=== PATIENT | female | born 1935 | race Caucasian/White ===

== ENCOUNTER 2017-08-23 13:00 | Outpatient (RCR) | payer MEDICARE, BC ==
[~2017-08-23 13:00] MED LIST: ACETAMINOPHEN325 M1 PO; ACIDOPHILUS LA1 EACH PO; AMLODIPINE BESYL5 MG PO; ASA81 MG PO; ASPIR 8181 MG; ATORVASTATIN CA10 MG PO; B-121000 MCG PO; B-123000 MCG SL; BENZONATATE100 MG PO; BISACODYL5 MG PO; BISCOLAX10 MG RC; BOOST PLUS237 ML PO; CIPRO500 MG PO; CLONIDINE HCL0.1 MG PO; CLOPIDOGREL75 MG PO; DULCOLAX SUPP10 MG RC; FERROUS SULFAT325 MG PO; FLAGYL250 MG PO; FLUCONAZOLE100 MG PO; HEMOCYTE PLUS1 EACH; HEMOCYTE324 MG; ISOSORBIDE MONO20 MG PO; ISOSORBIDE MONO30 MG PO; LEVAQUIN250 MG PO; LEVOTHYROXINE50 MCG PO; LIBRAX CAPSULE1 EACH; LIBRAX CAPSULE1 EACH PO; LOPRESSOR25 MG PO; LORATADINE10 MG PO; LOSARTAN POTAS100 MG PO; LOSARTAN POTASS25 MG PO; METOPROLOL TART50 MG PO; MILK OF MA2400 MG/10 PO; MIRALAX17 GM PO; NITROGLYCERIN0.4 MG SL; NITROQUICK0.4 M1 SL; NORVASC5 MG PO; PANTOPRAZOLE SO40 MG PO; PLAVIX75 MG PO; PROBIOTIC & AC1 EACH PO; ROPINIROLE HC0.25 MG PO; ROPINIROLE HCL1 MG PO; SIMVASTATIN20 MG PO; SUCRALFATE1 GM; SUCRALFATE1 GM PO; SYNTHROID50 MCG PO; TRAMADOL HCL50 M1 PO; ULTRAM 50MG50 MG PO; ULTRAM50 MG PO; VITAMIN B-121000 MCG PO; XYZAL5 MG PO; Z REQUIP PO; Z.0.CATAPRES0.1 MG PO; Z.0.COLACE50 MG PO; Z.0.EVISTA60 MG PO; Z.0.HEMOCYTE PLUS1 E PO; Z.0.HYDROCHLOROTH12. PO; Z.0.ISOSORBIDE DINI3 PO; Z.0.LIBRAX CAPSULE1 PO; Z.0.METOPROLOL SUCC5 PO; Z.0.PLAVIX75 MG PO; Z.0.PROTONIX40 MG PO; Z.0.SIMVASTATIN20 MG PO; Z.0.SYNTHROID50 MCG PO; Z.1.CENTRUM SILVER1 PO; Z.2.CALCIUM 600 +1 E PO; ZOFRAN ODT4 MG; ZOFRAN ODT4 MG PO; ZOFRAN8 MG PO; d-3 PO
== END 2017-08-25 ==
LOC: ST 13:00
PROVIDERS: ATTEND Internal Medicine Gastroenterology
DX: K22.2 Esophageal obstruction (principal); R13.13 Dysphagia, pharyngeal phase; R09.89 Other specified symptoms and signs involving the circulatory and respiratory systems
CPT/HCPCS: 92526 ×4; 92610; G8996; G8997

== ENCOUNTER 2017-08-26 15:16 | Outpatient (RCR) | payer MEDICARE, BC ==
[2017-09-07] MEDS ORDERED: NORVASC5 MG PO (17:16)
[2017-09-07] MEDS ORDERED: MULTIVITAMINS1 EAC7 PO (17:17)
[2017-09-07] MEDS ORDERED: ROPINIROLE HCL1 MG PO (17:17)
== END 2017-09-24 ==
LOC: ST 15:16
PROVIDERS: ATTEND Internal Medicine Gastroenterology
DX: R13.13 Dysphagia, pharyngeal phase (principal); K22.2 Esophageal obstruction

== ENCOUNTER → 2017-09-08 | Day surgery (SDC) | payer MEDICARE, BC ==
[~2017-09-08] MED LIST changes: +MULTIVITAMINS1 EAC7 PO; +PROPOFOL IV EMULSION 10 MG/ML 20 ML VIAL ONE
--- NOTE | 2017-09-08 14:16 | Operative Report ---
DATE OF PROCEDURE: September 08, 2017 PROCEDURE PERFORMED: Esophagogastroduodenoscopy. PREOPERATIVE DIAGNOSIS: Dysphagia. POSTOPERATIVE DIAGNOSIS 1. Jett's esophagus. 2. Intact fundoplication. 3. Esophageal spasm. 4. Gastritis. MEDICATION: Preoperative medication consisted of IV sedation administered in the MAC anesthesia. PROCEDURE: Using the [employer] video gastroscope, it was inserted into the patient's oropharynx and advanced into the hypopharynx and down into the esophagus. The oropharynx and the hypopharynx were normal. The esophageal body was normal except there were tertiary contractions noted. No evidence of any stricture was seen. There was evidence of Jett's esophagus at 36 cm. Below this was an intact fundoplication that was patent. The scope was able to go through it easily. No retained food debris was noted. The stomach was entered and insufflated with air. The mucosal pattern in the cardia, fundus, body and the antrum was viewed. There was evidence of a gastritis down in the antrum, but the rest of the stomach was normal. A biopsy was obtained, looking for the H. pylori infection. The endoscope was then inserted through the normal-appearing pylorus into the duodenal bulb and postbulbar duodenum and found to be within normal limits. The endoscope was withdrawn back up into the stomach, a retroflexed view of the intact fundoplication. The endoscope was then placed back into the body of the stomach and then slowly withdrawn back up into the esophagus where biopsies were obtained in the area of the Jett's esophagus. The endoscope was then further withdrawn back up into the esophagus. Again no stricture was seen. Tertiary contractions were noted. The endoscope was then pulled through back into the hypopharynx which again appeared normal, oropharynx, and out of the patient's mouth, and the procedure was ended. Job#: [id number] MELISSA
== END | disposition home or self-care (01) ==
LOC: OR 10:00
PROVIDERS: ATTEND Internal Medicine Gastroenterology
DX: K21.0 Gastro-esophageal reflux disease with esophagitis (principal); K22.70 Barrett's esophagus without dysplasia; K22.4 Dyskinesia of esophagus; K29.70 Gastritis, unspecified, without bleeding; R13.10 Dysphagia, unspecified; Z88.5 Allergy status to narcotic agent; Z88.8 Allergy status to other drugs, medicaments and biological substances; Z88.1 Allergy status to other antibiotic agents; Z91.012 Allergy to eggs; D50.9 Iron deficiency anemia, unspecified; R14.0 Abdominal distension (gaseous); K22.2 Esophageal obstruction; K58.0 Irritable bowel syndrome with diarrhea; I12.9 Hypertensive chronic kidney disease with stage 1 through stage 4 chronic kidney disease, or unspecified chronic kidney disease; N18.9 Chronic kidney disease, unspecified
CPT/HCPCS: 43239; 88305; 88312

== ENCOUNTER 2017-10-15 22:41 | Inpatient (IN) | payer MEDICARE, BC ==
[~2017-10-15] VITALS: Ht 162.6 cm; Wt 62.6 kg
[~2017-10-15 22:41] MED LIST changes: -PROPOFOL IV EMULSION 10 MG/ML 20 ML VIAL ONE
[2017-10-15] MEDS ORDERED: SODIUM CHLORIDE 0.9% 1000ML 1,000 ML IV STA (23:46)
[2017-10-16] MEDS ORDERED: ASPIRIN 81 MG CHEW TAB PO ONE
[2017-10-16] MEDS ORDERED: NITROGLYCERIN 2% OINT 1 GM PKT TOP ONE
[2017-10-16] MEDS: LOSARTAN POTASSIUM 100 MG TAB PO SCH (00:10)
--- NOTE | 2017-10-16 00:58 | Diagnostic Imaging Report ---
EXAMINATION: CHEST SINGLE (PORTABLE) INDICATION: Chest pain. COMPARISON: 06/08/2016 FINDINGS: TUBES and LINES: None. LUNGS: Lungs are well inflated. Lungs are clear. There is no evidence of pneumonia or pulmonary edema. PLEURA: No pleural effusion or pneumothorax. HEART AND MEDIASTINUM: Cardiac size is mildly enlarged. There are atherosclerotic calcifications within the aorta. Midline sternotomy wires are intact. BONES AND SOFT TISSUES: No acute osseous lesion. Soft tissues are unremarkable. UPPER ABDOMEN: No free air under the diaphragm. IMPRESSION: No acute thoracic abnormality. Signed by: Dr. Hudson Giles M.D. on 10/16/2017 12:54 AM
[2017-10-16 01:13] LABS: BASOPHILS # (AUTO) 0.1 (0.0-0.1); BASOPHILS % 0.2 % (0.0-1.0); EOSINOPHILS % 0.1 % (0.0-6.0); HEMATOCRIT 36.1 % (34.2-44.1); HEMOGLOBIN 11.7 g/dL (12.0-16.0); LYMPHOCYTES % 8.7 % (18.0-39.1); MEAN CORPUSCULAR HEMOGLOBIN 29.5 pg (28-32); MEAN CORPUSCULAR HGB CONC 32.4 g/dL (31-35); MEAN CORPUSCULAR VOLUME 91.2 fL (81-99); MONOCYTES # (AUTO) 1.9 (0.2-0.8); MONOCYTES % 8.3 % (4.4-11.3); NEUTROPHILS # (AUTO) 18.8 (2.1-6.9); NEUTROPHILS % 82.2 % (38.7-80.0); PLATELET COUNT 214 x10e3/uL (140-360); RED BLOOD COUNT 3.96 x10e6/uL (3.6-5.1); RED CELL DISTRIBUTION WIDTH 13.7 % (11.7-14.4)
[2017-10-16 01:29] LABS: INR 1.03; PROTHROMBIN TIME 12.7 seconds (11.9-14.5)
[2017-10-16 01:30] LABS: PARTIAL THROMBOPLASTIN TIME 22.9 seconds (23.8-35.5)
[2017-10-16 01:37] LABS: ALBUMIN 3.5 g/dL (3.5-5.0); ALBUMIN/GLOBULIN RATIO 1.1 (0.8-2.0); CALCIUM 9.3 mg/dL (8.4-10.2); CREATININE, SERUM 0.93 mg/dL (0.57-1.11)
[2017-10-16 01:43] LABS: CREATINE KINASE MB 1.4 ng/mL (0-5.0)
[2017-10-16 01:57] LABS: LYMPHOCYTES % (MANUAL) 17 % (19-48); MONOCYTES % (MANUAL) 2 % (3.4-9.0); NEUTROPHILS % (MANUAL) 80 % (40-74)
[2017-10-16 02:00] LABS: PLATELET ESTIMATE ADEQUATE; PLATELET MORPHOLOGY COMMENT NORMAL; POIKILOCYTOSIS SLIGHT; RBC MORPHOLOGY COMMENT NORMAL
[2017-10-16 02:18] LABS: CLARITY,URINE HAZY (CLEAR); COLOR,URINE YELLOW (YELLOW); LEUKOCYTE ESTERASE ,URINE 1+ (NEGATIVE); NITRITE,URINE NEGATIVE (NEGATIVE); PROTEIN,URINE DIPSTICK NEGATIVE (NEGATIVE)
[2017-10-16 02:19] LABS: BILIRUBIN,URINE NEGATIVE (NEGATIVE); KETONES,URINE NEGATIVE (NEGATIVE); URINE UROBILINOGEN 0.2 mg/dL (0.2 - 1)
[2017-10-16 02:28] LABS: BACTERIA,URINE MANY /HPF; EPITHELIAL CELLS,URINE RARE /LPF; RBC,URINE 0-5 /HPF (0-5); TRANSITIONAL EPI CELLS,URINE FEW; WBC,URINE (MAN) 21-50 /HPF (0-5)
[2017-10-16] MEDS ORDERED: PIPER-TAZ 3.375 GM 50 ML IV STA (02:34)
[2017-10-16] MEDS ORDERED: FAMOTIDINE 20 MG TAB PO SCH (04:15)
[2017-10-16] MEDS ORDERED: MORPHINE SULFATE 2 MG/ML SYR IV PRN (04:15)
[2017-10-16] MEDS ORDERED: SODIUM CHLORIDE 0.9% 1000ML 1,000 ML IV SCH (04:15)
[2017-10-16] MEDS ORDERED: ONDANSETRON HCL INJ 2 MG/ML VIAL IV PRN (04:15)
[2017-10-16] MEDS ORDERED: NITROGLYCERIN 0.4 MG SUBL SL PRN (04:15)
[2017-10-16] MEDS ORDERED: TRAMADOL HCL 50 MG TAB PO ONE (05:00)
[2017-10-16] MEDS ORDERED: ACETAMINOPHEN 325 MG TAB ONE (05:06)
[2017-10-16] MEDS: ACETAMINOPHEN 325 MG TAB PO PRN (05:10)
[2017-10-16 05:20] VITALS: BP 130/61
[2017-10-16 05:45] VITALS: BP 130/61
[2017-10-16] MEDS: NITROGLYCERIN 2% OINT 1 GM PKT TOP SCH ×3 (06:00→17:29)
[2017-10-16 07:53] LABS: CREATINE KINASE MB 1.1 ng/mL (0-5.0)
[2017-10-16 08:00] VITALS: BP 112/57
[2017-10-16] MEDS: FAMOTIDINE 20 MG TAB PO SCH ×2 (08:15→22:39)
[2017-10-16] MEDS ORDERED: LEVOTHYROXINE SODIUM 100 MCG TAB PO ONE (08:15)
[2017-10-16] MEDS: ASPIRIN 81 MG ENTERIC COATED PO SCH (08:15)
[2017-10-16] MEDS: PIPER-TAZ 3.375 GM 50 ML IV SCH ×3 (09:00→22:38)
[2017-10-16 12:00] VITALS: BP 116/60
[2017-10-16] MEDS ORDERED: SODIUM BICARBONATE 650 MG TAB PO ONE (13:00)
[2017-10-16] MEDS ORDERED: SODIUM CHLORIDE 0.9% 1000ML 1,000 ML ONE (14:19)
--- NOTE | 2017-10-16 15:22 | Diagnostic Imaging Report ---
EXAM: Gallbladder Ultrasound INDICATION: epigastric pains COMPARISON: None. TECHNIQUE: Transverse and longitudinal images of the gallbladder were obtained. FINDINGS: Liver: 11.6 cm in length, normal. Diffuse coarsened echotexture. No focal lesions within limitations. Gallbladder: Not visualized. Bile Ducts: Intrahepatic Ducts: No dilatation Extrahepatic Ducts: Common bile duct measures 0.5 cm, no dilatation Free Fluid: No ascites or pleural effusion Right kidney: 8.2 cm in length, atrophic. No hydronephrosis or shadowing calculi. Cortical scarring. Main portal vein: 0.7 cm in diameter. Hepatopedal flow. IVC, aorta and pancreas not well visualized due to shadowing from overlying bowel gas. IMPRESSION: Status post cholecystectomy. No significant biliary dilatation. Pancreas is suboptimally visualized. Signed by: Dr. Noreen Mcdowell M.D. on 10/16/2017 3:19 PM
[2017-10-16 15:52] LABS: CREATINE KINASE MB 1.6 ng/mL (0-5.0)
[2017-10-16 16:00] VITALS: BP 119/66
--- NOTE | 2017-10-16 16:51 | History and Physical ---
HISTORY OF PRESENT ILLNESS: This is an 82-year-old white female with past medical history positive for small-bowel obstruction in the past with partial small-bowel resection, history of coronary artery disease, status post CABG, history of chronic diastolic CHF, history of anemia of chronic disease, history of hypertensive heart disease, history of anemia secondary to iron deficiency and vitamin B12 deficiency, history of former hypertension, mitral regurgitation, peripheral vascular disease, mild carotid artery disease, orthostatic syncope in the past, hypothyroidism, hyperlipidemia, hiatal hernia, status post Vamshi fundoplication procedure, who came to the hospital complaining of gastric pain and some atypical chest pain. REVIEW OF SYSTEMS CARDIOVASCULAR: She had chest pain, which is gone. RESPIRATORY: No shortness of breath and no cough. GASTROINTESTINAL: She had epigastric pain. No nausea. No vomiting. No diarrhea. GENITOURINARY: No frequency or dysuria. ALLERGIES: SHE IS ALLERGIC TO A LONG LIST OF MEDICATIONS INCLUDING INFLUENZA VACCINE, ERYTHROMYCIN, CEPHALEXIN, CODEINE AND HYDROCODONE. SOCIAL HISTORY: She does not smoke. She does not drink. PHYSICAL EXAMINATION VITALS: Blood pressure 116/60. Temperature 96.1. Heart rate 63 per minute. Respiratory rate is 18 per minute. Oxygen saturation 95%. HEART: Regular rhythm. Normal S1, S2 sounds. LUNGS: Clear bilaterally. ABDOMEN: Soft. Minimal epigastric tenderness. She has a midline incision. She has an incision on the chest also. EXTREMITIES: No evidence of cyanosis, edema or trauma. LABS: On the blood work, we have BMP with sodium 139, potassium 4.0, chloride 107, CO2 20, BUN 17, creatinine 0.83, glucose 94. On the CBC, white blood count 22,800, hemoglobin 11.7, hematocrit 36.1, platelet count 214,000. PT 12.7, INR 1.03, PTT 22.9. AST 86, ALT 64, total bilirubin 0.6, alkaline phosphatase 94. FINAL IMPRESSION 1. Atypical chest pain. 2. Abdominal pain. 3. Coronary artery disease, status post coronary artery bypass graft. 4. Hypothyroidism. 5. Urinary tract infection. 6. Leukocytosis. 7. Anemia of chronic disease. 8. Hypertensive heart disease. 9. Status post Vamshi fundoplication. PLAN OF TREATMENT 1. Continue Zosyn 3.375 grams IV piggyback q.6 h. 2. Aspirin 81 mg daily. 3. Nitroglycerin 0.4 mg q.5 minutes p.r.n. for chest pain, no more than 3 tablets a day. 4. Morphine 2 mg IV q.3 h. as needed. 5. Tylenol 975 mg q.6 h. as needed for pain or fever. 6. Continue Zofran 4 mg IV q.4 h. as needed. 7. Pepcid 20 mg twice a day. 8. Continue the rest of the home medications. 9. Dr. Leroy has been consulted from the cardiology point of view. EKG was unremarkable. Cardiac enzymes are negative. 10. We are going to also get a gastroenterology consult with Dr. 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 Dr. Chakraborty is going to be resuming the care tomorrow, October 17, at 7 a.m. Job#: [id number]
[2017-10-16] MEDS: AMLODIPINE BESYLATE 5 MG TAB PO SCH (17:00)
[2017-10-16] MEDS: TRAMADOL HCL 50 MG TAB PO PRN (20:03)
[2017-10-16] MEDS: METOPROLOL TARTRATE 50 MG TAB PO SCH (21:00)
[2017-10-16] MEDS: ROPINIROLE HCL 1 MG TAB PO SCH (22:39)
[2017-10-16] MEDS: LORATADINE 10 MG TAB PO SCH (22:39)
[2017-10-17] VITALS (11 sets, daily range): BP systolic 121–206; BP diastolic 58–89
--- NOTE | 2017-10-17 00:35 | Consultation ---
DATE OF CONSULTATION: October 16, 2017 CLINICAL HISTORY: This is an 82-year-old white woman well known to me from previous evaluations, admitted via the emergency room because of chest pains lasting all day involving the lower anterior chest and in the epigastric region. This patient is known to have coronary artery disease, status post coronary artery bypass surgery. At the time of her last cardiac catheterization, 2011, she had a bifurcating vein bypass that remained patent; however, there was small-vessel disease distally. She was treated medically and continued to have vocational chest pains, but never the pain that she had that caused her to come to the emergency room. A month ago, Dr. Mitchell Ramirez had done endoscopy on her finding Jett's esophagus. She has history of hiatal hernia and previous hiatus hernia surgery times 2. Biopsy was done. On the day of admission, after breakfast, she developed moderate pain rated a 6 on a scale of 10, which persisted all day prompting her to come to the emergency room. Workup thus far showed normal cardiac enzymes and benign EKG. She has leukocytosis white count 22,000, metabolic acidosis bicarbonate 20. Anemia hemoglobin 11.7. Urinary tract infection. Her creatinine is normal 0.9. In the past, she has mild azotemia. Liver functions are slightly elevated. Cardiology consultation requested. PAST MEDICAL HISTORY: Remarkable for the above-mentioned coronary artery disease. She also has moderate mitral regurgitation, pulmonary hypertension 58 mmHg, has history of diverticulitis, constipation, hypertension. MEDICATIONS AT HOME: Included 1. Metoprolol succinate 50 mg p.o. daily. 2. Plavix 75 mg daily. 3. Tramadol. 4. Ropinirole. 5. Nitroglycerin sublingual p.r.n. 6. Protonix 40 mg daily. 7. Losartan 100 mg p.o. daily. 8. Xyzal 5 mg p.o. daily. 9. Norvasc 2.5 mg daily. 10. Zofran. 11. Tessalon. 12. Multivitamins. REVIEW OF SYSTEMS: Noncontributory. PHYSICAL EXAMINATION GENERAL: She is alert, coherent, appears to be comfortable. CARDIAC: Jugular veins are not distended. S1, S2 were regular. There is no appreciable murmur. LUNGS: Clear. ABDOMEN: Soft. There are no significant tenderness. EXTREMITIES: Show no cyanosis, clubbing, edema. IMPRESSIONS 1. Moderate prolonged low anterior epigastric pain, possibly gastrointestinal in origin. Consider also small-vessel coronary artery disease causing angina, although she was at rest and was eating when this happened. She does have somewhat elevated liver functions. 2. Coronary artery disease, status post coronary artery bypass surgery with small-vessel disease at the time of last cardiac catheterization, 2011. 3. Moderate mitral regurgitation. 4. Pulmonary hypertension 58 mmHg. 5. Peripheral vascular disease. 6. Hypertension. 7. Diverticulitis. 8. Jett's esophagus, hiatal hernia surgery and recent esophagogastroduodenoscopy and biopsy. 9. History of constipation. 10. Urinary tract infection. 11. Metabolic acidosis. 12. Mild anemia. This patient is unable to do a stress test because she uses a walker and does not want to have a chemical stress test. At her age, she is reluctant to have cardiac catheterization as well. We will, therefore, continue treat her symptomatically with nitro patch provided that her blood pressure will withstand it. We can possibly cut back on her losartan or even discontinue it. Her ejection fraction in the past has been in the range of 70%. Beta-blockers may be helpful instead of Norvasc consider increasing metoprolol if her rate will tolerate. Job#: [id number] CQ cc:MEDINA THOMPSON MD
[2017-10-17] MEDS: PIPER-TAZ 3.375 GM 50 ML IV SCH ×4 (04:02→20:54)
[2017-10-17] MEDS: ACETAMINOPHEN 325 MG TAB PO PRN (04:45)
[2017-10-17] MEDS: LEVOTHYROXINE SODIUM 50 MCG TAB PO SCH (04:45)
[2017-10-17 05:51] LABS: BASOPHILS % 0.2 % (0.0-1.0); EOSINOPHILS % 0.2 % (0.0-6.0); HEMATOCRIT 35.2 % (34.2-44.1); HEMOGLOBIN 11.3 g/dL (12.0-16.0); MEAN CORPUSCULAR HEMOGLOBIN 29.7 pg (28-32); MEAN CORPUSCULAR HGB CONC 32.1 g/dL (31-35); MEAN CORPUSCULAR VOLUME 92.6 fL (81-99); MONOCYTES # (AUTO) 0.9 (0.2-0.8); MONOCYTES % 6.8 % (4.4-11.3); NEUTROPHILS % 84.2 % (38.7-80.0); PLATELET COUNT 199 x10e3/uL (140-360); RED CELL DISTRIBUTION WIDTH 13.8 % (11.7-14.4)
[2017-10-17] MEDS: NITROGLYCERIN 2% OINT 1 GM PKT TOP SCH ×2 (06:06)
[2017-10-17] MEDS: PANTOPRAZOLE SOD 40 MG TABEC PO SCH (06:07)
[2017-10-17 06:13] LABS: ANION GAP 14.4 mmol/L (8-16); CALCIUM 8.7 mg/dL (8.4-10.2); CHOL/HDL RATIO 2.2 (3.0-3.6); CREATININE, SERUM 0.99 mg/dL (0.57-1.11); POTASSIUM 4.4 mmol/L (3.5-5.1)
[2017-10-17] MEDS: ASPIRIN 81 MG ENTERIC COATED PO SCH (10:00)
[2017-10-17] MEDS: CLOPIDOGREL BISULFATE 75 MG TAB PO SCH (10:00)
[2017-10-17] MEDS: METOPROLOL TARTRATE 50 MG TAB PO SCH ×2 (10:00→20:55)
[2017-10-17] MEDS: CYANOCOBALAMIN 1,000 MCG TAB PO SCH (10:00)
[2017-10-17] MEDS ORDERED: FUROSEMIDE INJ 10 MG/ML 4 ML VIAL IV ONE (10:00)
[2017-10-17] MEDS: MULTIVITAMINS/MINERALS TAB PO SCH (10:00)
[2017-10-17] MEDS: FAMOTIDINE 20 MG TAB PO SCH ×2 (10:00→20:55)
[2017-10-17] MEDS: AMLODIPINE BESYLATE 5 MG TAB PO SCH (17:16)
[2017-10-17] MEDS: LOSARTAN POTASSIUM 100 MG TAB PO SCH (20:54)
[2017-10-17] MEDS: LORATADINE 10 MG TAB PO SCH (20:54)
[2017-10-17] MEDS: ROPINIROLE HCL 1 MG TAB PO SCH (20:55)
[2017-10-18] VITALS (10 sets, daily range): BP systolic 104–186; BP diastolic 56–81
[2017-10-18] MEDS: PIPER-TAZ 3.375 GM 50 ML IV SCH ×4 (03:57→20:58)
[2017-10-18 05:22] LABS: BASOPHILS % 0.3 % (0.0-1.0); EOSINOPHILS # (AUTO) 0.1 (0.0-0.4); EOSINOPHILS % 1.2 % (0.0-6.0); HEMATOCRIT 35.1 % (34.2-44.1); HEMOGLOBIN 11.6 g/dL (12.0-16.0); LYMPHOCYTES % 8.8 % (18.0-39.1); MEAN CORPUSCULAR HEMOGLOBIN 29.3 pg (28-32); MEAN CORPUSCULAR VOLUME 88.6 fL (81-99); MONOCYTES # (AUTO) 0.7 (0.2-0.8); MONOCYTES % 6.7 % (4.4-11.3); NEUTROPHILS % 82.7 % (38.7-80.0); PLATELET COUNT 188 x10e3/uL (140-360); RED BLOOD COUNT 3.96 x10e6/uL (3.6-5.1); RED CELL DISTRIBUTION WIDTH 13.4 % (11.7-14.4)
[2017-10-18 05:56] LABS: ALBUMIN 2.8 g/dL (3.5-5.0); ALBUMIN/GLOBULIN RATIO 0.8 (0.8-2.0); ANION GAP 13.8 mmol/L (8-16); CREATININE, SERUM 1.45 mg/dL (0.57-1.11); POTASSIUM 3.8 mmol/L (3.5-5.1)
[2017-10-18] MEDS: LEVOTHYROXINE SODIUM 50 MCG TAB PO SCH (05:59)
[2017-10-18] MEDS: PANTOPRAZOLE SOD 40 MG TABEC PO SCH (07:45)
[2017-10-18] MEDS: CYANOCOBALAMIN 1,000 MCG TAB PO SCH (09:09)
[2017-10-18] MEDS: METOPROLOL TARTRATE 50 MG TAB PO SCH ×2 (09:09→20:58)
[2017-10-18] MEDS: CLOPIDOGREL BISULFATE 75 MG TAB PO SCH (09:09)
[2017-10-18] MEDS: FAMOTIDINE 20 MG TAB PO SCH ×2 (09:09→20:58)
[2017-10-18] MEDS: MULTIVITAMINS/MINERALS TAB PO SCH (09:09)
[2017-10-18] MEDS: ASPIRIN 81 MG ENTERIC COATED PO SCH (09:09)
[2017-10-18 12:42] LABS: AMYLASE 33 U/L (25-125)
[2017-10-18 12:44] LABS: LIPASE < 4 U/L (8-78)
--- NOTE | 2017-10-18 13:53 | Diagnostic Imaging Report ---
PROCEDURE: Frontal and lateral views of the chest. COMPARISON: Chest radiograph 10/16/[address] 06/10/16. INDICATIONS: CHF FINDINGS: Lines/tubes: None. Lungs: The lungs are well inflated. There is no evidence of pneumonia or pulmonary edema. Pleura: There is no pneumothorax. Trace pleural effusion or pleural thickening on the left is unchanged. Heart and mediastinum: The cardiomediastinal silhouette is unchanged. Atherosclerotic aortic calcifications. A lead projecting over the left pericardium is unchanged from prior studies. Bones: No acute bony abnormality. Status post median sternotomy. IMPRESSION: No acute cardiopulmonary disease. Dictated by: MONALISA YANEZ M.D. on 10/18/2017 at 13:58 Electronically approved by: MONALISA YANEZ M.D. on 10/18/2017 at 13:58
[2017-10-18] MEDS: AMLODIPINE BESYLATE 5 MG TAB PO SCH (17:29)
[2017-10-18] MEDS: LOSARTAN POTASSIUM 100 MG TAB PO SCH (20:58)
[2017-10-18] MEDS: LORATADINE 10 MG TAB PO SCH (20:58)
[2017-10-18] MEDS: ROPINIROLE HCL 1 MG TAB PO SCH (20:58)
[2017-10-18] MEDS: TRAMADOL HCL 50 MG TAB PO PRN (21:03)
[2017-10-19] VITALS (8 sets, daily range): BP systolic 122–180; BP diastolic 70–92
[2017-10-19] MEDS: PIPER-TAZ 3.375 GM 50 ML IV SCH ×2 (02:46→07:55)
[2017-10-19 05:17] LABS: BASOPHILS % 0.4 % (0.0-1.0); EOSINOPHILS # (AUTO) 0.1 (0.0-0.4); EOSINOPHILS % 1.2 % (0.0-6.0); HEMATOCRIT 37.3 % (34.2-44.1); HEMOGLOBIN 12.1 g/dL (12.0-16.0); LYMPHOCYTES # (AUTO) 1.4 (1.0-3.2); LYMPHOCYTES % 13.6 % (18.0-39.1); MEAN CORPUSCULAR HEMOGLOBIN 29.4 pg (28-32); MEAN CORPUSCULAR HGB CONC 32.4 g/dL (31-35); MEAN CORPUSCULAR VOLUME 90.5 fL (81-99); MONOCYTES # (AUTO) 1.1 (0.2-0.8); MONOCYTES % 10.8 % (4.4-11.3); NEUTROPHILS # (AUTO) 7.6 (2.1-6.9); NEUTROPHILS % 73.8 % (38.7-80.0); PLATELET COUNT 158 x10e3/uL (140-360); RED BLOOD COUNT 4.12 x10e6/uL (3.6-5.1); RED CELL DISTRIBUTION WIDTH 13.8 % (11.7-14.4)
[2017-10-19 05:38] LABS: ALBUMIN 2.7 g/dL (3.5-5.0); ALBUMIN/GLOBULIN RATIO 0.8 (0.8-2.0); ANION GAP 13.1 mmol/L (8-16); CREATININE, SERUM 1.33 mg/dL (0.57-1.11); POTASSIUM 4.1 mmol/L (3.5-5.1)
[2017-10-19] MEDS: LEVOTHYROXINE SODIUM 50 MCG TAB PO SCH (05:51)
[2017-10-19] MEDS: PANTOPRAZOLE SOD 40 MG TABEC PO SCH (07:55)
[2017-10-19] MEDS: ASPIRIN 81 MG ENTERIC COATED PO SCH (07:55)
[2017-10-19] MEDS: METOPROLOL TARTRATE 50 MG TAB PO SCH ×2 (07:56→21:01)
[2017-10-19] MEDS: MULTIVITAMINS/MINERALS TAB PO SCH (07:56)
[2017-10-19] MEDS: FAMOTIDINE 20 MG TAB PO SCH ×2 (07:56→21:01)
[2017-10-19] MEDS: CLOPIDOGREL BISULFATE 75 MG TAB PO SCH (07:56)
[2017-10-19] MEDS: CYANOCOBALAMIN 1,000 MCG TAB PO SCH (07:56)
[2017-10-19] MEDS: TRAMADOL HCL 50 MG TAB PO PRN (07:57)
[2017-10-19] MEDS ORDERED: ACETAMINOPHEN 325 MG TAB PO ONE (08:30)
[2017-10-19] MEDS ORDERED: FUROSEMIDE INJ 10 MG/ML 4 ML VIAL IV ONE (10:00)
[2017-10-19] MEDS: CEFEPIME HCL 1 GM VIAL IV SCH ×2 (12:31→21:57)
[2017-10-19] MEDS: AMLODIPINE BESYLATE 5 MG TAB PO SCH (18:57)
[2017-10-19] MEDS: LORATADINE 10 MG TAB PO SCH (21:00)
[2017-10-19] MEDS: ROPINIROLE HCL 1 MG TAB PO SCH (21:01)
[2017-10-19] MEDS: LOSARTAN POTASSIUM 100 MG TAB PO SCH (21:01)
[2017-10-20] VITALS (7 sets, daily range): BP systolic 113–151; BP diastolic 67–82
[2017-10-20 05:26] LABS: BASOPHILS % 0.3 % (0.0-1.0); EOSINOPHILS # (AUTO) 0.1 (0.0-0.4); EOSINOPHILS % 0.8 % (0.0-6.0); HEMATOCRIT 36.9 % (34.2-44.1); HEMOGLOBIN 12.3 g/dL (12.0-16.0); LYMPHOCYTES # (AUTO) 1.7 (1.0-3.2); LYMPHOCYTES % 12.4 % (18.0-39.1); MEAN CORPUSCULAR HEMOGLOBIN 29.4 pg (28-32); MEAN CORPUSCULAR HGB CONC 33.3 g/dL (31-35); MEAN CORPUSCULAR VOLUME 88.1 fL (81-99); MONOCYTES # (AUTO) 1.7 (0.2-0.8); MONOCYTES % 12.4 % (4.4-11.3); NEUTROPHILS % 73.8 % (38.7-80.0); PLATELET COUNT 222 x10e3/uL (140-360); RED BLOOD COUNT 4.19 x10e6/uL (3.6-5.1); RED CELL DISTRIBUTION WIDTH 13.3 % (11.7-14.4)
[2017-10-20 05:48] LABS: ALBUMIN 2.9 g/dL (3.5-5.0); ALBUMIN/GLOBULIN RATIO 0.8 (0.8-2.0); ANION GAP 15.2 mmol/L (8-16); CALCIUM 9.1 mg/dL (8.4-10.2); CREATININE, SERUM 1.31 mg/dL (0.57-1.11); POTASSIUM 4.2 mmol/L (3.5-5.1)
[2017-10-20] MEDS: LEVOTHYROXINE SODIUM 100 MCG TAB PO SCH (06:34)
[2017-10-20 06:54] LABS: EOSINOPHILS % (MANUAL) 1 % (0-7); LYMPHOCYTES % (MANUAL) 5 % (19-48); MONOCYTES % (MANUAL) 9 % (3.4-9.0); NEUTROPHILS % (MANUAL) 77 % (40-74)
[2017-10-20 06:55] LABS: ANISOCYTOSIS SLIGHT; PLATELET ESTIMATE ADEQUATE; PLATELET MORPHOLOGY COMMENT NORMAL; RBC MORPHOLOGY COMMENT NORMAL
[2017-10-20] MEDS: FAMOTIDINE 20 MG TAB PO SCH ×2 (08:20→21:05)
[2017-10-20] MEDS: MULTIVITAMINS/MINERALS TAB PO SCH (08:20)
[2017-10-20] MEDS: PANTOPRAZOLE SOD 40 MG TABEC PO SCH (08:20)
[2017-10-20] MEDS: METOPROLOL TARTRATE 50 MG TAB PO SCH (08:20)
[2017-10-20] MEDS: ASPIRIN 81 MG ENTERIC COATED PO SCH (08:20)
[2017-10-20] MEDS: CLOPIDOGREL BISULFATE 75 MG TAB PO SCH (08:21)
[2017-10-20] MEDS: CYANOCOBALAMIN 1,000 MCG TAB PO SCH (08:21)
[2017-10-20] MEDS: CEFEPIME HCL 1 GM VIAL IV SCH ×2 (08:21→21:05)
[2017-10-20] MEDS ORDERED: FUROSEMIDE INJ 10 MG/ML 4 ML VIAL IV ONE (10:00)
--- NOTE | 2017-10-20 11:11 | Diagnostic Imaging Report ---
PROCEDURE: CHEST SINGLE (PORTABLE) COMPARISON: 10/18/2017. INDICATIONS: CHEST PAIN FINDINGS: The lungs remain well-inflated and without focal consolidation or pneumothorax. Trace blunting of the left lateral costophrenic sulcus is unchanged which may reflect effusion or pleural thickening. Stable cardiomediastinal contour with median sternotomy changes and atherosclerotic calcification of the thoracic aorta. No overt pulmonary edema. No acute osseous abnormality. CONCLUSION: No acute cardiopulmonary abnormality. Dictated by: Misha Rider M.D. on 10/20/2017 at 11:15 Electronically approved by: Misha Rider M.D. on 10/20/2017 at 11:15
[2017-10-20] MEDS: AMLODIPINE BESYLATE 5 MG TAB PO SCH (17:00)
[2017-10-20] MEDS: ROPINIROLE HCL 1 MG TAB PO SCH (21:05)
[2017-10-20] MEDS: LORATADINE 10 MG TAB PO SCH (21:05)
[2017-10-21] VITALS (8 sets, daily range): BP systolic 96–155; BP diastolic 56–86
[2017-10-21] MEDS: LOSARTAN POTASSIUM 100 MG TAB PO SCH ×2 (00:36→22:08)
[2017-10-21] MEDS: METOPROLOL TARTRATE 50 MG TAB PO SCH ×3 (00:38→22:08)
[2017-10-21] MEDS: TRAMADOL HCL 50 MG TAB PO PRN (00:38)
[2017-10-21 05:27] LABS: BASOPHILS % 0.3 % (0.0-1.0); EOSINOPHILS # (AUTO) 0.1 (0.0-0.4); EOSINOPHILS % 0.7 % (0.0-6.0); HEMATOCRIT 35.1 % (34.2-44.1); HEMOGLOBIN 11.9 g/dL (12.0-16.0); LYMPHOCYTES # (AUTO) 2.3 (1.0-3.2); LYMPHOCYTES % 15.1 % (18.0-39.1); MEAN CORPUSCULAR HEMOGLOBIN 29.7 pg (28-32); MEAN CORPUSCULAR HGB CONC 33.9 g/dL (31-35); MEAN CORPUSCULAR VOLUME 87.5 fL (81-99); MONOCYTES # (AUTO) 2.4 (0.2-0.8); MONOCYTES % 15.8 % (4.4-11.3); NEUTROPHILS # (AUTO) 10.2 (2.1-6.9); NEUTROPHILS % 67.6 % (38.7-80.0); PLATELET COUNT 228 x10e3/uL (140-360); RED BLOOD COUNT 4.01 x10e6/uL (3.6-5.1); RED CELL DISTRIBUTION WIDTH 13.1 % (11.7-14.4)
[2017-10-21 05:50] LABS: ALBUMIN 2.7 g/dL (3.5-5.0); ALBUMIN/GLOBULIN RATIO 0.8 (0.8-2.0); ANION GAP 15.1 mmol/L (8-16); CALCIUM 8.7 mg/dL (8.4-10.2); CREATININE, SERUM 1.57 mg/dL (0.57-1.11); POTASSIUM 3.1 mmol/L (3.5-5.1)
[2017-10-21] MEDS: LEVOTHYROXINE SODIUM 100 MCG TAB PO SCH (06:00)
[2017-10-21 06:37] LABS: BAND NEUTROPHILS % (MANUAL) 1 %; LYMPHOCYTES % (MANUAL) 16 % (19-48); MONOCYTES % (MANUAL) 11 % (3.4-9.0); NEUTROPHILS % (MANUAL) 70 % (40-74)
[2017-10-21 06:38] LABS: PLATELET ESTIMATE ADEQUATE; PLATELET MORPHOLOGY COMMENT FEW LARGE; RBC MORPHOLOGY COMMENT NORMAL
[2017-10-21] MEDS: PANTOPRAZOLE SOD 40 MG TABEC PO SCH (08:36)
[2017-10-21] MEDS: CLOPIDOGREL BISULFATE 75 MG TAB PO SCH (08:36)
[2017-10-21] MEDS: FAMOTIDINE 20 MG TAB PO SCH ×2 (08:36→22:08)
[2017-10-21] MEDS: CYANOCOBALAMIN 1,000 MCG TAB PO SCH (08:36)
[2017-10-21] MEDS: ASPIRIN 81 MG ENTERIC COATED PO SCH (08:36)
[2017-10-21] MEDS: MULTIVITAMINS/MINERALS TAB PO SCH (08:36)
[2017-10-21] MEDS: CEFEPIME HCL 1 GM VIAL IV SCH (10:29)
[2017-10-21] MEDS ORDERED: POTASSIUM CHLORIDE 10 MEQ TABCR PO NR ×2 (10:45→14:00)
[2017-10-21] MEDS ORDERED: POTASSIUM CHLORIDE 10 MEQ TABCR PO ONE (14:00)
[2017-10-21] MEDS ORDERED: MEROPENEM 500MG 500 MG in SODIUM CHLORIDE 0.9% 50ML 50 ML IV SCH (14:00)
[2017-10-21] MEDS: MEROPENEM 500 MG VIAL IV SCH ×2 (14:22→22:08)
[2017-10-21] MEDS: SODIUM CHLORIDE 0.9% 1000ML 1,000 ML IV SCH ×2 (15:04→22:00)
[2017-10-21] MEDS: AMLODIPINE BESYLATE 5 MG TAB PO SCH (16:23)
[2017-10-21] MEDS: ROPINIROLE HCL 1 MG TAB PO SCH (22:08)
[2017-10-21] MEDS: LORATADINE 10 MG TAB PO SCH (22:08)
[2017-10-22] VITALS (8 sets, daily range): BP systolic 128–174; BP diastolic 61–83
[2017-10-22 05:30] LABS: BASOPHILS # (AUTO) 0.1 (0.0-0.1); BASOPHILS % 0.3 % (0.0-1.0); EOSINOPHILS # (AUTO) 0.1 (0.0-0.4); EOSINOPHILS % 0.5 % (0.0-6.0); HEMATOCRIT 35.8 % (34.2-44.1); HEMOGLOBIN 11.6 g/dL (12.0-16.0); LYMPHOCYTES # (AUTO) 1.8 (1.0-3.2); LYMPHOCYTES % 9.8 % (18.0-39.1); MEAN CORPUSCULAR HEMOGLOBIN 29.7 pg (28-32); MEAN CORPUSCULAR HGB CONC 32.4 g/dL (31-35); MEAN CORPUSCULAR VOLUME 91.6 fL (81-99); MONOCYTES % 11.3 % (4.4-11.3); NEUTROPHILS # (AUTO) 13.9 (2.1-6.9); NEUTROPHILS % 77.6 % (38.7-80.0); PLATELET COUNT 204 x10e3/uL (140-360); RED BLOOD COUNT 3.91 x10e6/uL (3.6-5.1); RED CELL DISTRIBUTION WIDTH 13.2 % (11.7-14.4)
[2017-10-22] MEDS: MEROPENEM 500 MG VIAL IV SCH ×4 (05:47→21:00)
[2017-10-22 05:48] LABS: ALBUMIN 2.6 g/dL (3.5-5.0); ALBUMIN/GLOBULIN RATIO 0.8 (0.8-2.0); ANION GAP 15.2 mmol/L (8-16); CALCIUM 8.6 mg/dL (8.4-10.2); CREATININE, SERUM 1.27 mg/dL (0.57-1.11); POTASSIUM 4.2 mmol/L (3.5-5.1)
[2017-10-22] MEDS: LEVOTHYROXINE SODIUM 100 MCG TAB PO SCH (06:07)
[2017-10-22] MEDS: FAMOTIDINE 20 MG TAB PO SCH ×2 (09:36→20:17)
[2017-10-22] MEDS: ASPIRIN 81 MG ENTERIC COATED PO SCH (09:36)
[2017-10-22] MEDS: CLOPIDOGREL BISULFATE 75 MG TAB PO SCH (09:36)
[2017-10-22] MEDS: METOPROLOL TARTRATE 50 MG TAB PO SCH ×2 (09:36→20:17)
[2017-10-22] MEDS: MULTIVITAMINS/MINERALS TAB PO SCH (09:36)
[2017-10-22] MEDS: CYANOCOBALAMIN 1,000 MCG TAB PO SCH (09:36)
[2017-10-22] MEDS: PANTOPRAZOLE SOD 40 MG TABEC PO SCH (09:36)
[2017-10-22] MEDS: SODIUM CHLORIDE 0.9% 1000ML 1,000 ML IV SCH ×3 (11:00→20:18)
[2017-10-22] MEDS: AMLODIPINE BESYLATE 5 MG TAB PO SCH (16:50)
[2017-10-22] MEDS: GUAIFENESIN/DEXTROMETHORPHAN LIQD 5 ML UDC PO PRN ×2 (16:51→23:15)
[2017-10-22] MEDS: LORATADINE 10 MG TAB PO SCH (20:16)
[2017-10-22] MEDS: LOSARTAN POTASSIUM 100 MG TAB PO SCH (20:17)
[2017-10-22] MEDS: ROPINIROLE HCL 1 MG TAB PO SCH (20:18)
[2017-10-23] VITALS (8 sets, daily range): BP systolic 129–194; BP diastolic 63–99
[2017-10-23] MEDS: MEROPENEM 500 MG VIAL IV SCH ×3 (05:12→21:28)
[2017-10-23] MEDS: LEVOTHYROXINE SODIUM 100 MCG TAB PO SCH (05:12)
[2017-10-23 05:38] LABS: BASOPHILS % 0.2 % (0.0-1.0); EOSINOPHILS # (AUTO) 0.1 (0.0-0.4); EOSINOPHILS % 0.6 % (0.0-6.0); HEMATOCRIT 31.9 % (34.2-44.1); HEMOGLOBIN 10.2 g/dL (12.0-16.0); LYMPHOCYTES # (AUTO) 2.8 (1.0-3.2); MEAN CORPUSCULAR HEMOGLOBIN 29.1 pg (28-32); MEAN CORPUSCULAR VOLUME 91.1 fL (81-99); MONOCYTES # (AUTO) 1.9 (0.2-0.8); MONOCYTES % 10.8 % (4.4-11.3); NEUTROPHILS # (AUTO) 12.5 (2.1-6.9); PLATELET COUNT 233 x10e3/uL (140-360); RED CELL DISTRIBUTION WIDTH 13.2 % (11.7-14.4)
[2017-10-23 05:58] LABS: ALBUMIN 2.3 g/dL (3.5-5.0); ALBUMIN/GLOBULIN RATIO 0.7 (0.8-2.0); ANION GAP 11.1 mmol/L (8-16); CALCIUM 8.4 mg/dL (8.4-10.2); CREATININE, SERUM 1.01 mg/dL (0.57-1.11); POTASSIUM 4.1 mmol/L (3.5-5.1)
[2017-10-23] MEDS: PANTOPRAZOLE SOD 40 MG TABEC PO SCH (07:29)
[2017-10-23] MEDS: METOPROLOL TARTRATE 50 MG TAB PO SCH ×2 (07:29→21:28)
[2017-10-23] MEDS: CYANOCOBALAMIN 1,000 MCG TAB PO SCH (08:58)
[2017-10-23] MEDS: VANCOMYCIN 1GM/NS 250 ML 250 ML IV SCH (08:58)
[2017-10-23] MEDS: TRAMADOL HCL 50 MG TAB PO PRN (08:58)
[2017-10-23] MEDS: MULTIVITAMINS/MINERALS TAB PO SCH (08:58)
[2017-10-23] MEDS: CLOPIDOGREL BISULFATE 75 MG TAB PO SCH (08:58)
[2017-10-23] MEDS: FAMOTIDINE 20 MG TAB PO SCH ×2 (08:58→21:28)
[2017-10-23] MEDS: ASPIRIN 81 MG ENTERIC COATED PO SCH (08:58)
--- NOTE | 2017-10-23 09:17 | Diagnostic Imaging Report ---
EXAM: XR CHEST 1 VIEW DATE: 10/23/2017 7:06 AM INDICATION: CHF COMPARISON: 10/20/2017 FINDINGS: Lines and Tubes: None Heart and Mediastinum: Heart upper limits of normal. Sternotomy changes and aortic vascular calcification stable. Lungs and Pleura: No significant edema. Basilar atelectasis. Ill-defined nodular density left midlung stable dating back to 04/21/2016. Bones and Soft Tissues: No acute findings. IMPRESSION: 1. Stable changes. Signed by: Dr. Tc Bourne MD on 10/23/2017 9:13 AM
[2017-10-23] MEDS: AMLODIPINE BESYLATE 5 MG TAB PO SCH (17:08)
[2017-10-23] MEDS: LORATADINE 10 MG TAB PO SCH (21:27)
[2017-10-23] MEDS: LOSARTAN POTASSIUM 100 MG TAB PO SCH (21:28)
[2017-10-23] MEDS: ROPINIROLE HCL 1 MG TAB PO SCH (21:28)
[2017-10-24] VITALS (8 sets, daily range): BP systolic 121–176; BP diastolic 59–85
[2017-10-24] MEDS: LOSARTAN POTASSIUM 100 MG TAB PO SCH (01:25)
[2017-10-24 05:13] LABS: BASOPHILS # (AUTO) 0.1 (0.0-0.1); BASOPHILS % 0.3 % (0.0-1.0); EOSINOPHILS # (AUTO) 0.1 (0.0-0.4); EOSINOPHILS % 0.4 % (0.0-6.0); HEMATOCRIT 31.9 % (34.2-44.1); HEMOGLOBIN 10.7 g/dL (12.0-16.0); LYMPHOCYTES # (AUTO) 2.5 (1.0-3.2); LYMPHOCYTES % 13.7 % (18.0-39.1); MEAN CORPUSCULAR HEMOGLOBIN 29.6 pg (28-32); MEAN CORPUSCULAR HGB CONC 33.5 g/dL (31-35); MEAN CORPUSCULAR VOLUME 88.4 fL (81-99); MONOCYTES % 10.8 % (4.4-11.3); NEUTROPHILS # (AUTO) 13.6 (2.1-6.9); NEUTROPHILS % 74.1 % (38.7-80.0); PLATELET COUNT 251 x10e3/uL (140-360); RED BLOOD COUNT 3.61 x10e6/uL (3.6-5.1); RED CELL DISTRIBUTION WIDTH 12.9 % (11.7-14.4)
[2017-10-24 05:29] LABS: ALBUMIN 2.3 g/dL (3.5-5.0); ALBUMIN/GLOBULIN RATIO 0.7 (0.8-2.0); ANION GAP 13.1 mmol/L (8-16); CALCIUM 8.6 mg/dL (8.4-10.2); CREATININE, SERUM 1.02 mg/dL (0.57-1.11); POTASSIUM 4.1 mmol/L (3.5-5.1)
[2017-10-24] MEDS: LEVOTHYROXINE SODIUM 100 MCG TAB PO SCH (06:21)
[2017-10-24] MEDS: MEROPENEM 500 MG VIAL IV SCH ×3 (06:21→22:05)
[2017-10-24] MEDS: MULTIVITAMINS/MINERALS TAB PO SCH (08:33)
[2017-10-24] MEDS: FAMOTIDINE 20 MG TAB PO SCH ×2 (08:33→20:20)
[2017-10-24] MEDS: CYANOCOBALAMIN 1,000 MCG TAB PO SCH (08:33)
[2017-10-24] MEDS: CLOPIDOGREL BISULFATE 75 MG TAB PO SCH (08:33)
[2017-10-24] MEDS: PANTOPRAZOLE SOD 40 MG TABEC PO SCH (08:33)
[2017-10-24] MEDS: ASPIRIN 81 MG ENTERIC COATED PO SCH (08:33)
[2017-10-24] MEDS: VANCOMYCIN 1GM/NS 250 ML 250 ML IV SCH (08:33)
[2017-10-24] MEDS: METOPROLOL TARTRATE 50 MG TAB PO SCH (11:30)
[2017-10-24] MEDS: AMLODIPINE BESYLATE 5 MG TAB PO SCH (16:22)
[2017-10-24] MEDS: LORATADINE 10 MG TAB PO SCH (20:20)
[2017-10-24] MEDS: ROPINIROLE HCL 1 MG TAB PO SCH (20:20)
[2017-10-25] VITALS (8 sets, daily range): BP systolic 103–179; BP diastolic 58–79
[2017-10-25] MEDS: LOSARTAN POTASSIUM 100 MG TAB PO SCH ×2 (01:25→21:00)
[2017-10-25] MEDS: METOPROLOL TARTRATE 50 MG TAB PO SCH ×3 (01:25→21:00)
[2017-10-25] MEDS ORDERED: ACETAMINOPHEN 325 MG TAB PO ONE (05:15)
[2017-10-25] MEDS ORDERED: CLONIDINE HCL 0.1 MG TAB PO ONE (05:15)
[2017-10-25] MEDS ORDERED: CLONIDINE HCL 0.1 MG TAB PO PRN (05:15)
[2017-10-25] MEDS: MEROPENEM 500 MG VIAL IV SCH ×3 (05:38→22:00)
[2017-10-25] MEDS: LEVOTHYROXINE SODIUM 100 MCG TAB PO SCH (05:38)
[2017-10-25 05:51] LABS: BASOPHILS % 0.2 % (0.0-1.0); EOSINOPHILS # (AUTO) 0.1 (0.0-0.4); EOSINOPHILS % 0.6 % (0.0-6.0); HEMATOCRIT 34.5 % (34.2-44.1); HEMOGLOBIN 11.3 g/dL (12.0-16.0); LYMPHOCYTES # (AUTO) 2.3 (1.0-3.2); LYMPHOCYTES % 13.5 % (18.0-39.1); MEAN CORPUSCULAR HEMOGLOBIN 29.4 pg (28-32); MEAN CORPUSCULAR HGB CONC 32.8 g/dL (31-35); MEAN CORPUSCULAR VOLUME 89.8 fL (81-99); MONOCYTES # (AUTO) 1.8 (0.2-0.8); MONOCYTES % 10.3 % (4.4-11.3); NEUTROPHILS # (AUTO) 12.9 (2.1-6.9); NEUTROPHILS % 74.8 % (38.7-80.0); PLATELET COUNT 310 x10e3/uL (140-360); RED BLOOD COUNT 3.84 x10e6/uL (3.6-5.1); RED CELL DISTRIBUTION WIDTH 12.9 % (11.7-14.4)
[2017-10-25 06:00] LABS: ALBUMIN 2.5 g/dL (3.5-5.0); ALBUMIN/GLOBULIN RATIO 0.7 (0.8-2.0); CALCIUM 9.1 mg/dL (8.4-10.2); CREATININE, SERUM 1.05 mg/dL (0.57-1.11)
[2017-10-25 06:22] LABS: THYROID STIMULATING HORMONE 3.135 uIU/mL (0.350-4.940)
[2017-10-25 08:19] LABS: ANISOCYTOSIS SLIGHT; LYMPHOCYTES % (MANUAL) 17 % (19-48); MONOCYTES % (MANUAL) 10 % (3.4-9.0); NEUTROPHILS % (MANUAL) 72 % (40-74); PLATELET ESTIMATE ADEQUATE
[2017-10-25 08:20] LABS: PLATELET MORPHOLOGY COMMENT NORMAL; POIKILOCYTOSIS SLIGHT; RBC MORPHOLOGY COMMENT NORMAL
[2017-10-25] MEDS: CLOPIDOGREL BISULFATE 75 MG TAB PO SCH (09:12)
[2017-10-25] MEDS: FAMOTIDINE 20 MG TAB PO SCH ×2 (09:12→21:00)
[2017-10-25] MEDS: CYANOCOBALAMIN 1,000 MCG TAB PO SCH (09:12)
[2017-10-25] MEDS: ASPIRIN 81 MG ENTERIC COATED PO SCH (09:12)
[2017-10-25] MEDS: PANTOPRAZOLE SOD 40 MG TABEC PO SCH (09:12)
[2017-10-25] MEDS: MULTIVITAMINS/MINERALS TAB PO SCH (09:12)
--- NOTE | 2017-10-25 16:03 | Consultation ---
DATE OF CONSULTATION: REASON FOR CONSULTATION: Recommendation for antibiotic. UTI with multidrug resistance. HISTORY OF PRESENT ILLNESS: This patient is an 82-year-old white female who has history of small bowel obstruction, history of partial small bowel resection, coronary artery disease, status post CABG, congestive heart failure, diastolic, anemia of chronic disease, history of hypertensive heart disease, anemia secondary to iron deficiency, vitamin B12 deficiency, hypertension, mitral regurgitation, peripheral vascular disease, orthostatic hypotension with syncope, hypothyroidism, hyperlipidemia, hiatal hernia, status post Vamshi fundoplication procedure, hip fracture before and comes in with nausea and vomiting and abdominal pain. Patient was admitted on 10/16. She has been seen by cardiology. Patient is currently lying in bed comfortably. It was found she had abnormal urine cultures and she was started on antibiotic. Patient is debilitated and weak and they plan for her to go to [facility]. Infectious disease was asked to see her. REVIEW OF SYSTEMS: GENERAL: Just weak. HEENT: There is no headache, visual changes, hearing changes. GI: There is no nausea, no vomiting, no diarrhea. CARDIAC: No arrhythmia. PHYSICAL EXAMINATION: GENERAL: Alert, oriented, does not seem to be in any acute distress. VITAL SIGNS: Stable, currently afebrile. HEENT: Not icteric. NECK: Supple. No JVD. No lymphadenopathy or thyromegaly. CHEST: Clear bilaterally. HEART: S1 and S2, no murmur. ABDOMEN: Soft. Bowel sounds present. No tenderness. EXTREMITIES: No edema. SKIN: No rash. MEDICATIONS: List reviewed. LABORATORY DATA: Reviewed. White count is 17.3, hemoglobin 11, sodium 139, potassium 4.0, creatinine 1.05. Urine culture showed Klebsiella pneumoniae, pansensitive, resistant only to ampicillin. The patient is current on meropenem, aspirin, Claritin. IMPRESSION AND PLAN: 1. The patient with urinary tract infection with Klebsiella. Can change to Rocephin 1 gram IV piggyback q.24 hours. 2. Leukocytosis. Recheck CBC and recheck chem panel. Check CBC with manual differential. Check amylase and lipase. Finish 14 days of IV antibiotic and switch to oral. 3. Further recommendations to follow. Job#: [id number]
[2017-10-25] MEDS: AMLODIPINE BESYLATE 5 MG TAB PO SCH (16:40)
--- NOTE | 2017-10-25 19:13 | Consultation ---
DATE OF CONSULTATION: October 24, 2017 Vivek Lua is an 82-year-old white female who was referred to me for evaluation of leukocytosis. The patient had presented with burning in the urine, fever, and subsequently seen in the ER and she also had complained of chest pain involving the lower anterior chest wall and epigastrium, and subsequently admitted for further evaluation and treatment. HISTORY OF PAST ILLNESSES: History of coronary artery disease. History of coronary artery bypass, history of having an endoscopy by Dr. Mitchell Ramirez and the patient was found to have Jett's esophagus. SOCIAL HISTORY: Noncontributory. FAMILY HISTORY: Noncontributory. ALLERGIES: REPORTED NONE. MEDICATIONS: 1. Metoprolol. 2. Plavix. 3. Tramadol. 4. Ropinirole. 5. Nitroglycerin. 6. Protonix. 7. Losartan. 8. Xyzal. 9. Norvasc. 10. Zofran. 11. Tessalon. 12. Multivitamins. REVIEW OF SYSTEMS: HEENT: Normal. CARDIAC: History of hypertension, coronary artery disease, coronary artery bypass. RESPIRATORY: Normal. GI: Jett's esophagus. : Normal. MUSCULOSKELETAL: Normal. SKIN AND BREASTS: Normal. NEUROENDOCRINE: Normal. PHYSICAL EXAMINATION: GENERAL: Rather thin-built female. No palpable adenopathy. HEART: Normal. LUNGS: Clear. ABDOMEN: Obese. There is no hepatosplenomegaly. scar is seen. RECTAL AND VAGINAL EXAM: Deferred. CENTRAL NERVOUS SYSTEM: Essentially normal. LABORATORY DATA: Shows a hemoglobin of 11.7, hematocrit 36.1, white count of 22,880. Platelets are reported at 214,000, 80% neutrophils, no immature forms seen. Chemistry shows a sodium of 139, potassium 4.0, chloride 107,, CO2 20, BUN 17, creatinine 0.9. Bilirubin 0.6. SGOT 6, SGPT ____, alkaline phosphate reported normal at 94. Urinalysis shows multiple bacteria. A urine culture has shown Klebsiella. IMAGING: The patient had ultrasound of the gallbladder which was reported essentially normal. The patient is status post cholecystectomy. IMPRESSION: 1. Leukemoid reaction. 2. Anemia of chronic disease. 3. Jett's esophagus. 4. High liver function tests. 5. Urinary tract infection with Klebsiella. 6. Status post cholecystectomy. 7. Status post coronary artery bypass procedure. 8. History of hiatus hernia. 9. History of pulmonary hypertension. 10. History of mitral regurgitation. 11. History of hypertension. 12. History of diverticulosis coli. PLAN, COMMENTS AND SUGGESTIONS: Suggest aggressive antibiotic therapy for the Klebsiella UTI. This is a leukemoid reaction. I will follow this patient with you. Job#: [id number] cc:MEDINA THOMPSON MD cc:DONAVON HAGEN MD cc:MITCHELL RAMIREZ M.D. cc:ANKUSH LEONG MD
[2017-10-25] MEDS: ROPINIROLE HCL 1 MG TAB PO SCH (21:00)
[2017-10-25] MEDS: LORATADINE 10 MG TAB PO SCH (21:00)
[2017-10-26] VITALS: BP 146/67
[2017-10-26 04:00] VITALS: BP 156/67
[2017-10-26 05:01] LABS: BASOPHILS # (AUTO) 0.1 (0.0-0.1); BASOPHILS % 0.3 % (0.0-1.0); EOSINOPHILS # (AUTO) 0.1 (0.0-0.4); EOSINOPHILS % 0.6 % (0.0-6.0); HEMATOCRIT 34.6 % (34.2-44.1); HEMOGLOBIN 11.4 g/dL (12.0-16.0); LYMPHOCYTES # (AUTO) 2.5 (1.0-3.2); MEAN CORPUSCULAR HEMOGLOBIN 29.2 pg (28-32); MEAN CORPUSCULAR HGB CONC 32.9 g/dL (31-35); MEAN CORPUSCULAR VOLUME 88.5 fL (81-99); MONOCYTES # (AUTO) 1.6 (0.2-0.8); MONOCYTES % 8.9 % (4.4-11.3); NEUTROPHILS # (AUTO) 13.6 (2.1-6.9); NEUTROPHILS % 75.5 % (38.7-80.0); PLATELET COUNT 324 x10e3/uL (140-360); RED BLOOD COUNT 3.91 x10e6/uL (3.6-5.1); RED CELL DISTRIBUTION WIDTH 12.7 % (11.7-14.4)
[2017-10-26 05:28] LABS: ALBUMIN 2.7 g/dL (3.5-5.0); ALBUMIN/GLOBULIN RATIO 0.7 (0.8-2.0); ANION GAP 14.4 mmol/L (8-16); CALCIUM 9.1 mg/dL (8.4-10.2); CREATININE, SERUM 1.28 mg/dL (0.57-1.11); POTASSIUM 4.4 mmol/L (3.5-5.1)
[2017-10-26] MEDS: LEVOTHYROXINE SODIUM 100 MCG TAB PO SCH (05:55)
[2017-10-26] MEDS: MEROPENEM 500 MG VIAL IV SCH ×2 (05:55→13:56)
[2017-10-26 06:55] LABS: LYMPHOCYTES % (MANUAL) 8 % (19-48); MONOCYTES % (MANUAL) 7 % (3.4-9.0); NEUTROPHILS % (MANUAL) 83 % (40-74)
[2017-10-26 06:56] LABS: ANISOCYTOSIS MODERATE; PLATELET ESTIMATE ADEQUATE; POIKILOCYTOSIS SLIGHT
[2017-10-26 06:57] LABS: PLATELET MORPHOLOGY COMMENT FEW LARGE; RBC MORPHOLOGY COMMENT ABNORMAL
[2017-10-26 07:20] VITALS: BP 132/61
[2017-10-26 07:31] VITALS: BP 132/61
[2017-10-26] MEDS: PANTOPRAZOLE SOD 40 MG TABEC PO SCH (07:48)
[2017-10-26] MEDS: METOPROLOL TARTRATE 50 MG TAB PO SCH (09:00)
[2017-10-26] MEDS: ASPIRIN 81 MG ENTERIC COATED PO SCH (09:10)
[2017-10-26] MEDS: FAMOTIDINE 20 MG TAB PO SCH (09:11)
[2017-10-26] MEDS: CLOPIDOGREL BISULFATE 75 MG TAB PO SCH (09:11)
[2017-10-26] MEDS: MULTIVITAMINS/MINERALS TAB PO SCH (09:11)
[2017-10-26] MEDS: CYANOCOBALAMIN 1,000 MCG TAB PO SCH (09:11)
--- NOTE | 2017-10-26 10:54 | Diagnostic Imaging Report ---
PROCEDURE: CHEST SINGLE (PORTABLE) COMPARISON: [facility], DX, CHEST SINGLE (PORTABLE), 10/23/2017, 9:00. INDICATIONS: COUGH, PNEUMONIA FINDINGS: LUNGS: No focal consolidation. Pulmonary vascularity appears unchanged. Minimal basilar atelectasis. PLEURA: No effusions or pneumothorax. HEART \T\ MEDIASTINUM: The heart is within normal size-limits. There are sternotomy wire sutures. BONES \T\ SOFT TISSUES: No acute findings. CONCLUSION: No significant interval change. Jaren Nunez D.O. Dictated by: Jaren Nunez D.O. on 10/26/2017 at 10:59 Electronically approved by: Jaren Nunez D.O. on 10/26/2017 at 10:59
[2017-10-26 11:23] VITALS: BP 112/57
--- NOTE | 2017-10-26 11:37 | Discharge Summary ---
ADMIT DIAGNOSES 1. Sepsis secondary to urinary tract infection. 2. Atypical chest pain. 3. Upper abdominal pain. 4. Coronary artery disease. 5. Anemia secondary to chronic disease and iron deficiency. 6. Hypertensive heart disease. DISCHARGE DIAGNOSES 1. Sepsis secondary to Klebsiella pneumoniae urinary tract infection. 2. Acute renal failure, resolving. 3. Hypertensive heart disease. 4. Fpeda-tn-riduivo diastolic congestive heart failure, resolving. 5. Coronary artery disease. 6. Persistent leukocytosis, likely secondary to sepsis. HOSPITAL COURSE: This is an 82-year-old white woman who was initially admitted to [facility] with diagnosis of sepsis secondary to urinary tract infection. During this hospitalization, patient was found to have sepsis secondary to Klebsiella pneumoniae urinary tract infection confirmed by urine culture. She was also diagnosed with [id number] diastolic congestive heart failure. Moreover, patient was found to have persistent leukocytosis which was felt to be secondary to leukemoid reaction from patient's urinary tract infection. Patient was seen by Dr. Isaias Iverson, the surveillance monitor, because of her persistent leukocytosis. Patient was also seen by Dr. Darden, an infectious disease specialist, for her persistent sepsis. The decision was made to transfer the patient to a long-term acute care facility where she could receive intravenous antibiotics for at least 25 more days in regards to her sepsis. At this facility, the patient will be followed by attending, attending, namely myself, Dr. Fuentes Thompson. DISCHARGE MEDICATIONS 1. Pantoprazole 40 mg daily. 2. Meropenem 500 mg intravenous every 8 hours. 3. Levothyroxine 100 mcg daily. 4. Ropinirole 0.5 mg nightly. 5. Metoprolol tartrate 25 mg b.i.d. 6. Losartan 100 mg nightly. 7. Loratadine 5 mg nightly. 8. Famotidine 20 mg b.i.d. 9. Amlodipine 2.5 mg daily. 10. Multivitamin daily. 11. Vitamin B12, 1000 mcg daily. 12. Clopidogrel 75 mg daily. 13. Aspirin 81 mg daily. 14. Guaifenesin/dextromethorphan 10 mL every 4 hours p.r.n. cough. 15. Ondansetron 4 mg intravenous every 4 hours p.r.n. nausea and vomiting. 16. Clonidine 0.1 mg 1 p.o. q.6 h. p.r.n. elevated blood pressure. 17. Nitroglycerin 0.4 mg 1 sublingual every 5 minutes as needed for chest pain. FOLLOWUP INSTRUCTIONS: Patient will transfer to a long-term acute care facility, namely, [facility] where she will be followed by her attending, namely myself, Dr. Fuentes Thompson. FUENTES THOMPSON MD Job#: [id number] CF MTDD
[2017-10-26 15:34] VITALS: BP 114/55
== END 2017-10-26 16:31 | DRG 871 ==
LOC: ER 22:41 → ERHOLD 10-16 04:21 → MED/SURG3 10-16 05:29 → OBSVTOIN 10-18 16:42
PROVIDERS: ADMIT Internal Medicine; ATTEND Internal Medicine
DX: A41.89 Other specified sepsis (principal); I50.33 Acute on chronic diastolic (congestive) heart failure; K83.1 Obstruction of bile duct; K72.00 Acute and subacute hepatic failure without coma; N10 Acute pyelonephritis; E87.2 Acidosis; I50.32 Chronic diastolic (congestive) heart failure; K57.32 Diverticulitis of large intestine without perforation or abscess without bleeding; N39.0 Urinary tract infection, site not specified; N17.9 Acute kidney failure, unspecified; R65.20 Severe sepsis without septic shock; B96.1 Klebsiella pneumoniae [K. pneumoniae] as the cause of diseases classified elsewhere; B96.89 Other specified bacterial agents as the cause of diseases classified elsewhere; I73.9 Peripheral vascular disease, unspecified; D64.9 Anemia, unspecified; E78.5 Hyperlipidemia, unspecified; K22.70 Barrett's esophagus without dysplasia; E03.9 Hypothyroidism, unspecified; R07.89 Other chest pain; I25.10 Atherosclerotic heart disease of native coronary artery without angina pectoris; Z95.1 Presence of aortocoronary bypass graft; D63.8 Anemia in other chronic diseases classified elsewhere; Z98.890 Other specified postprocedural states; I11.0 Hypertensive heart disease with heart failure; D51.3 Other dietary vitamin B12 deficiency anemia; D50.9 Iron deficiency anemia, unspecified; Z88.1 Allergy status to other antibiotic agents; Z88.5 Allergy status to narcotic agent; Z88.7 Allergy status to serum and vaccine; R79.89 Other specified abnormal findings of blood chemistry; I05.9 Rheumatic mitral valve disease, unspecified; Z16.35 Resistance to multiple antimicrobial drugs; D72.823 Leukemoid reaction; Z90.49 Acquired absence of other specified parts of digestive tract; Z91.012 Allergy to eggs
CPT/HCPCS: 36415; 71045; 71046; 76705; 80048; 80053; 80061; 81001; 82150; 82550; 82553; 83690; 83735; 83880; 84443; 84484; 85025; 85610; 85730; 87086; 87186; 93005; 96361; 97139; 99284; G0378; J0692; J1940; J2185; J2405; J2543; J3370; J7030

== ENCOUNTER → 2017-12-27 | Outpatient (CLI) | payer MEDICARE, BC ==
--- NOTE | 2017-12-27 16:14 | Diagnostic Imaging Report ---
EXAMINATION: CHEST 2 VIEWS INDICATION: Cough. Congestion. COMPARISON: October 23, 2017 FINDINGS: TUBES and LINES: Sternal wires. LUNGS: Lungs are well inflated. Mild chronic appearing changes in the lungs. There is no evidence of pneumonia or pulmonary edema. PLEURA: No pleural effusion or pneumothorax. HEART AND MEDIASTINUM: The cardiomediastinal silhouette is unremarkable. BONES AND SOFT TISSUES: No acute osseous lesion. Soft tissues are unremarkable. UPPER ABDOMEN: No free air under the diaphragm. IMPRESSION: No acute thoracic abnormality. Signed by: Dr. Ld Carroll M.D. on 12/27/2017 4:11 PM
== END ==
LOC: RAD 15:03
PROVIDERS: ATTEND Internal Medicine
DX: R05 Cough (principal); J15.9 Unspecified bacterial pneumonia; R09.89 Other specified symptoms and signs involving the circulatory and respiratory systems
CPT/HCPCS: 71046

== ENCOUNTER 2018-03-16 14:00 | Outpatient (RCR) | payer MEDICARE, BC ==
--- NOTE | 2018-03-07 15:20 | NUR ---
Patient Name: Vivek StarrOB: [birth year] Age/Sex: 82/femaleOrdering Physician: Fuentes Chakraborty MD Clinical Swallow Evaluation/Initial Treatment Session Patient is an 82 year old female with diagnosis of esophageal obstruction and dysphagia. Patient completed a modified barium swallow (MBS) study on 01/19/17. Pt presented with mild pharyngeal dysphagia c/b consistent premature spillage to the level of the vallecula, flash penetration and aspiration of thin liquids, and consistent pharyngeal residue after the swallow. Dysphagia was judged to be secondary to decreased hyolaryngeal excursion, decreased coordination of the swallow, and decreased pharyngeal constriction. Recommendation was made for dysphagia therapy to increase strength and coordination of swallow. Patient was seen today in the outpatient clinic for initial treatment of Neuromuscular Electrical Stimulation (NMES) with VitalStim Therapy and traditional dysphagia therapy with pharyngeal exercises. Pt was seen with spouse present. Oral motor exam revealed function that was grossly within normal limits. Patient tolerates room air. Hearing appeared to be WFL. Speech and language skills were functional. Patient reported increased coughing, throat clearing, runny nose, and sneezing during meal time since the modified barium swallow study. Provided extensive education re: need for therapy, purpose of exercises and NMES, and future plan of care. Pt indicated understanding. Pt was given water and thin puree. Pt was instructed to take small sips and swallow hard, feeling all the muscles in her throat contract. Placement 3b was used to target the mylohyoid muscle, the anterior belly of the digastric muscle, the sternohyoid muscle, the omohyoid muscle, the geniohyoid muscle, and the middle pharyngeal constrictors. Channel 1 of the electrodes was aligned horizontally just above the hyoid bone and channel 2 of the electrodes was aligned horizontally at the level of the thyroid notch. This placement was used to improve base of tongue strength, pharyngeal constriction, and UES function. Pt initially tolerated 8.0 mA, but as the session progressed pt tolerated 20.0 mA. Pt received 45 minutes of stimulation. Cough noted X 1, throat clear X 0. During NMES an exercise program was presented, demonstrated, and discussed. Pt completed the exercises with minimal assistance. A home program was assigned. Pt/spouse verbalized understanding of the home exercise program. Education provided as indicated. All questions were answered. Impressions: Pt tolerated initial session of NMES well. She continues to report and demonstrate s/s of aspiration during meals which significantly interferes with her quality of life. Pt is an excellent candidate for dysphagia exercises and NMES for improvement of strength and coordination of swallow. Recommendations: 1.Dysphagia therapy to include traditional exercises and NMES 2X/week for 6 weeks for a total of 12 treatment sessions 2.Home exercise program 3.Repeat MBS in 4 weeks with new goals to be determined at that time Certified Histologic Technician Goal: Pt will tolerate least restrictive diet without s/s of aspiration as judged by an objective evaluation. Short Term Goals: 1.Pt will complete 3 repetitions of a set of dysphagia exercises to improve laryngeal elevation, base of tongue retraction, and laryngeal closure, 10 repetitions per exercise, with minimal cues. 2.Pt will tolerate NMES for 45 60 minutes with no clinical s/s of aspiration to improve strength of pharyngeal constrictors, hyolaryngeal excursion, and safety with po intake. 3.Pt will complete home dysphagia exercise program targeting laryngeal elevation, base of tongue strength, and cricopharyngeal function independently. 4.Pt will follow aspiration precautions with independence. 5.Pt will participate in a repeat Modified Barium Swallow study to objectively re-assess swallow safety and function and determine safest diet. Shanika Diggs M.S. [facility]-PATIENT SAFETY ATTENDANT Date of Session: 03/07/18 Dysphagia Evaluation and Dysphagia Therapy X 55 minutes Physicians signature below certifies medical necessity for these skilled interventions Physician SignatureDate G-code Modifiers: Current: [id number] Goal: [id number] NOMS Rating for Swallowing: Level 5
== END 2018-03-27 ==
LOC: ST 14:00
PROVIDERS: ATTEND Internal Medicine
DX: K22.2 Esophageal obstruction (principal); R13.10 Dysphagia, unspecified
CPT/HCPCS: 92526 ×4; 92610; 97139; G8996; G8997

== ENCOUNTER → 2018-04-27 | Outpatient (RCR) | payer MEDICARE, BC ==
--- NOTE | 2018-03-30 13:09 | NUR ---
ST NOTE: Pt called, pt too ill to attend speech therapy today, will return at next scheduled apt on 04-04-18 at 1400.
--- NOTE | 2018-04-04 15:00 | NUR ---
Clinical Swallow Re-Evaluation Patient is an 82 year old female with diagnosis of esophageal obstruction and dysphagia. Patient completed a modified barium swallow (MBS) study on 01/19/17. Pt presented with mild pharyngeal dysphagia c/b consistent premature spillage to the level of the vallecula, flash penetration and aspiration of thin liquids, and consistent pharyngeal residue after the swallow. Dysphagia was judged to be secondary to decreased hyolaryngeal excursion, decreased coordination of the swallow, and decreased pharyngeal constriction. Recommendation was made for dysphagia therapy to increase strength and coordination of swallow. Patient was seen in the outpatient clinic for treatment of Neuromuscular Electrical Stimulation (NMES) with VitalStim Therapy and traditional dysphagia therapy with pharyngeal exercises X 5 sessions. There was a break in treatment due to the . Short term goals and progress follow: 1.Pt will complete 3 repetitions of a set of dysphagia exercises to improve laryngeal elevation, base of tongue retraction, and laryngeal closure, 10 repetitions per exercise, with minimal cuespt completed exercises with no cues. 2.Pt will tolerate NMES for 45 60 minutes with no clinical s/s of aspiration to improve strength of pharyngeal constrictors, hyolaryngeal excursion, and safety with po intakept tolerated 60 minutes of NMES with thin liquid and hard candy at a max of 18.5 mA. Placement 3b was used to target the mylohyoid muscle, the anterior belly of the digastric muscle, the sternohyoid muscle, the omohyoid muscle, the geniohyoid muscle, and the middle pharyngeal constrictors. Channel 1 of the electrodes was aligned horizontally just above the hyoid bone and channel 2 of the electrodes was aligned horizontally at the level of the thyroid notch. This placement was used to improve base of tongue strength, pharyngeal constriction, and UES function. Cough was noted X 1, throat clear X 1. 3.Pt will complete home dysphagia exercise program targeting laryngeal elevation, base of tongue strength, and cricopharyngeal function independentlypt reported completion of home exercise program daily. 4.Pt will follow aspiration precautions with independencept reported following aspiration precautions with cues. 5.Pt will participate in a repeat Modified Barium Swallow study to objectively re-assess swallow safety and function and determine safest dietnot yet scheduled. Impressions: Pt continues to tolerate treatment well and continues to report less coughing and choking with meals. However, she also continues to report and demonstrate s/s of aspiration during meals which significantly interferes with her quality of life. Continued treatment is recommended to complete the recommended 12 sessions of therapy. Recommendations: 1.Dysphagia therapy to include traditional exercises and NMES 2X/week for 4 weeks 2.Home exercise program 3.Repeat MBS in 3 weeks with new goals to be determined at that time Inventory Transcriber Goal: Pt will tolerate least restrictive diet without s/s of aspiration as judged by an objective evaluation. Short Term Goals: 1.Pt will complete 3 repetitions of a set of dysphagia exercises to improve laryngeal elevation, base of tongue retraction, and laryngeal closure, 10 repetitions per exercise, with minimal cues. 2.Pt will tolerate NMES for 45 60 minutes with no clinical s/s of aspiration to improve strength of pharyngeal constrictors, hyolaryngeal excursion, and safety with po intake. 3.Pt will complete home dysphagia exercise program targeting laryngeal elevation, base of tongue strength, and cricopharyngeal function independently. 4.Pt will follow aspiration precautions with independence. 5.Pt will participate in a repeat Modified Barium Swallow study to objectively re-assess swallow safety and function and determine safest diet. Masha Tucker M.A. CCC-TENTMAKER Date of Session: 04/04/18 Dysphagia Evaluation X 65 minutes G-code modifiers: Current: [id number] Goal: [id number] Justification: objective measurements, pt report, observation, outcome survey NOMS Rating for Swallowing: Level 5
== END ==
LOC: ST 04-04 15:48
PROVIDERS: ATTEND Internal Medicine
DX: K22.2 Esophageal obstruction (principal); R13.13 Dysphagia, pharyngeal phase
CPT/HCPCS: 97139

== ENCOUNTER → 2018-05-04 | Outpatient (CLI) | payer MEDICARE, BC ==
--- NOTE | 2018-05-08 13:52 | Diagnostic Imaging Report ---
PROCEDURE: X-RAY MODIFIED BARIUM SWALLOW COMPARISON: None. INDICATION: Dysphagia Radiation Details: Fluoroscopy time: 1.7 minutes Cumulative dose: 2.4 mGy DISCUSSION: Fluoroscopic examination was performed in conjunction with speech pathology during swallowing a variety of thin and thick liquid consistencies. Provided images demonstrate trace laryngeal penetration and trace aspiration. There is mild vallecular residue and trace pharyngeal wall residue. CONCLUSION: Modified barium swallow demonstrating trace laryngeal penetration and trace aspiration. Please refer to the speech pathology report for further details. Signed by: Dr. Brooklynn De Dios MD on 05/08/2018 1:48 PM
== END ==
LOC: DX 13:33
PROVIDERS: ATTEND Internal Medicine
DX: K22.2 Esophageal obstruction (principal); R13.13 Dysphagia, pharyngeal phase
CPT/HCPCS: 74230

== ENCOUNTER → 2018-05-25 | Outpatient (RCR) | payer MEDICARE, BC ==
--- NOTE | 2018-05-23 11:17 | NUR ---
Pt's called and cx Speech Therapy session secondary to inclement weather, additional apt to be rescheduled by LIME HIDE INSPECTOR
--- NOTE | 2018-05-25 14:14 | NUR ---
ST NOTE: Pt no show, assuming because of inclement weather. Left message on answering machine. Next apt on 05/30/18.
--- NOTE | 2018-05-25 14:41 | NUR ---
ST NOTE: Pt 25 minutes late to session secondary to difficulty parking, treating pt now with NMES to treat dysphagia
== END ==
LOC: ST 05-02 14:12
PROVIDERS: ATTEND Internal Medicine
DX: K22.2 Esophageal obstruction (principal); R13.13 Dysphagia, pharyngeal phase

== ENCOUNTER 2018-06-20 14:00 | Outpatient (RCR) | payer MEDICARE, BC ==
--- NOTE | 2018-06-06 14:38 | NUR ---
Patient Name: Vivek StarrOB: [birth year] Age/Sex: 82/femaleOrdering Physician: Fuentes Chakraborty MD Clinical Swallow Evaluation/Initial Treatment Session Clinical Swallow Re-Evaluation Patient is an 82 year old female with diagnosis of esophageal obstruction and dysphagia. Patient completed a modified barium swallow (MBS) study on 01/19/17. Pt presented with mild pharyngeal dysphagia c/b consistent premature spillage to the level of the vallecula, flash penetration and aspiration of thin liquids, and consistent pharyngeal residue after the swallow. Dysphagia was judged to be secondary to decreased hyolaryngeal excursion, decreased coordination of the swallow, and decreased pharyngeal constriction. Recommendation was made for dysphagia therapy to increase strength and coordination of swallow. Patient was seen in the outpatient clinic for treatment of Neuromuscular Electrical Stimulation (NMES) with VitalStim Therapy and traditional dysphagia therapy with pharyngeal exercises X 12 sessions. Repeat MBS completed on 05/04/18: Normal oral phase of swallow and improved pharyngeal phase of swallow, min pharyngeal residue post thin trials with thin liquids and silent penetration and aspiration during ther swallow and after use of chin tuck. No residue or aspiration/penetration with nectar thick liquids/thin-thick puree, cracker or fruit trials. Short term goals and progress follow: 1. Pt will complete 3 repetitions of a set of dysphagia exercises to improve laryngeal elevation, base of tongue retraction, and laryngeal closure, 10 repetitions per exercise, with minimal cuespt completed exercises with no cues. 2. Pt will tolerate NMES for 45 60 minutes with no clinical s/s of aspiration to improve strength of pharyngeal constrictors, hyolaryngeal excursion, and safety with po intakept tolerated 60 minutes of NMES with thin liquid and hard candy at a max of 25.0 mA. Placement 3b was used to target the mylohyoid muscle, the anterior belly of the digastric muscle, the sternohyoid muscle, the omohyoid muscle, the geniohyoid muscle, and the middle pharyngeal constrictors. Channel 1 of the electrodes was aligned horizontally just above the hyoid bone and channel 2 of the electrodes was aligned horizontally at the level of the thyroid notch. This placement was used to improve base of tongue strength, pharyngeal constriction, and UES function. Cough was noted X 0, throat clear X 0. 3. Pt will complete home dysphagia exercise program targeting laryngeal elevation, base of tongue strength, and cricopharyngeal function independentlypt reported completion of home exercise program daily. 4. Pt will follow aspiration precautions with independencept reported following aspiration precautions with cues. 5. Pt will participate in a repeat Modified Barium Swallow study to objectively re-assess swallow safety and function and determine safest dietnot yet scheduled. Impressions: Pt continues to tolerate treatment well and continues to report less coughing and choking with meals. However, she also continues to report and demonstrate s/s of aspiration during meals which significantly interferes with her quality of life. Continued treatment is recommended to complete the recommended 12 sessions of therapy. Recommendations: 1. Dysphagia therapy to include traditional exercises and NMES 2X/week for 4 weeks 2. Home exercise program 3. Repeat MBS in 3 weeks with new goals to be determined at that time Lift Team Technician Goal: Pt will tolerate least restrictive diet without s/s of aspiration as judged by an objective evaluation. Short Term Goals: 1. Pt will complete 3 repetitions of a set of dysphagia exercises to improve laryngeal elevation, base of tongue retraction, and laryngeal closure, 10 repetitions per exercise, with minimal cues. 2. Pt will tolerate NMES for 45 60 minutes with no clinical s/s of aspiration to improve strength of pharyngeal constrictors, hyolaryngeal excursion, and safety with po intake. 3. Pt will complete home dysphagia exercise program targeting laryngeal elevation, base of tongue strength, and cricopharyngeal function independently. 4. Pt will follow aspiration precautions with independence. 5. Pt will participate in a repeat Modified Barium Swallow study to objectively re-assess swallow safety and function and determine safest diet. Shanika Diggs M.S. CCC-QUALITY COMPLIANCE COORDINATOR Date of Session: 06/06/18 Dysphagia Re-Evaluation X 65 minutes NOMS Rating for Swallowing: Level 5 Physicians signature below certifies medical necessity for these skilled interventions Physician SignatureDate
--- NOTE | 2018-06-13 10:08 | NUR ---
ST NOTE: Pt has dental apt and can not make speech session today, called, they will return 06/15/18
== END 2018-06-25 ==
LOC: ST 14:00
PROVIDERS: ATTEND Internal Medicine
DX: K22.2 Esophageal obstruction (principal); R13.13 Dysphagia, pharyngeal phase

== ENCOUNTER 2018-06-27 14:15 | Outpatient (RCR) | payer MEDICARE, BC | END 2018-07-25 | LOC: ST 14:15 | PROVIDERS: ATTEND Internal Medicine | DX: R13.13 Dysphagia, pharyngeal phase (principal); K22.2 Esophageal obstruction ==

== ENCOUNTER → 2018-07-06 | Outpatient (CLI) | payer MEDICARE, BC ==
--- NOTE | 2018-07-06 17:35 | Diagnostic Imaging Report ---
Exam: Modified barium swallow dated 07/06/2018 History: Dysphagia and esophageal obstruction Comparison: 05/04/2018 Findings: Modified barium swallow was accomplished in conjunction with Speech Pathology where the patient swallowed a different consistencies of barium impregnated liquids and semisolids. There is laryngeal penetration but no aspiration was witnessed. Fluoroscopy time: 1.3 minutes Total dose: 11.42 mGy Impression: Laryngeal penetration but no aspiration. Please see the full report provided by the Speech Pathologist. Signed by: Dr. Jaren Nunez DO on 07/06/2018 5:31 PM
== END ==
LOC: DX 14:07
PROVIDERS: ATTEND Internal Medicine
DX: K22.2 Esophageal obstruction (principal); R13.13 Dysphagia, pharyngeal phase
CPT/HCPCS: 74230

== ENCOUNTER 2021-08-08 10:21 | Inpatient (IN) | payer MEDICARE, BC ==
[~2021-08-08] VITALS: Ht 165.1 cm; Wt 61.2 kg
[2021-08-08] MEDS ORDERED: SODIUM CHLORIDE 0.9% 500ML 500 ML IV ONE (16:00)
[2021-08-08] MEDS ORDERED: ONDANSETRON HCL INJ 2MG/ML 2ML 2 MG/ML VIAL IV PRN (16:45)
[2021-08-08] MEDS ORDERED: SODIUM CHLORIDE 0.9% 1000ML 1,000 ML IV ONE (16:45)
[2021-08-08 16:51] LABS: BASOPHILS # (AUTO) 0.1 (0.0-0.1); BASOPHILS % 0.4 % (0.0-1.0); EOSINOPHILS # (AUTO) 0.2 (0.0-0.4); EOSINOPHILS % 1.1 % (0.0-6.0); HEMATOCRIT 32.5 % (34.2-44.1); HEMOGLOBIN 10.1 g/dL (12.0-16.0); LYMPHOCYTES % 14.9 % (18.0-39.1); MEAN CORPUSCULAR HEMOGLOBIN 29.6 pg (28-32); MEAN CORPUSCULAR HGB CONC 31.1 g/dL (31-35); MEAN CORPUSCULAR VOLUME 95.3 fL (81-99); MONOCYTES # (AUTO) 1.1 (0.2-0.8); NEUTROPHILS # (AUTO) 10.3 (2.1-6.9); NEUTROPHILS % 75.2 % (38.7-80.0); PLATELET COUNT 376 x10e3/uL (140-360); RED BLOOD COUNT 3.41 x10e6/uL (3.6-5.1); RED CELL DISTRIBUTION WIDTH 15.6 % (11.7-14.4)
[2021-08-08 17:01] LABS: INR 1.01; PROTHROMBIN TIME 14.2 seconds (11.9-14.5)
[2021-08-08 17:02] LABS: PARTIAL THROMBOPLASTIN TIME 27.1 seconds (23.8-35.5)
[2021-08-08 17:09] LABS: ALBUMIN 3.2 g/dL (3.5-5.0); ALBUMIN/GLOBULIN RATIO 0.9 (0.8-2.0); CALCIUM 8.5 mg/dL (8.4-10.2); CREATININE, SERUM 0.88 mg/dL (0.57-1.11)
[2021-08-08 17:10] LABS: CLARITY,URINE SL CLOUDY (CLEAR); COLOR,URINE YELLOW (YELLOW); KETONES,URINE NEGATIVE (NEGATIVE); LEUKOCYTE ESTERASE ,URINE TRACE (NEGATIVE); NITRITE,URINE NEGATIVE (NEGATIVE); PROTEIN,URINE DIPSTICK NEGATIVE (NEGATIVE); URINE UROBILINOGEN 0.2 mg/dL (0.2 - 1)
[2021-08-08 17:15] LABS: CREATINE KINASE MB 1.1 ng/mL (0-5.0)
[2021-08-08 17:16] LABS: SALICYLATE < 5.0 mg/dL (0-30)
[2021-08-08 17:19] LABS: BACTERIA,URINE MANY /HPF; EPITHELIAL CELLS,URINE FEW /LPF
[2021-08-08 18:20] VITALS: BP 173/87
[2021-08-08] MEDS ORDERED: CEFTRIAXONE 2 GM in SODIUM CHLORIDE 0.9% 100 ML IV SCH (19:30)
[2021-08-08 20:00] VITALS: BP 178/93
[2021-08-08] MEDS: CIPROFLOXACIN 200 MG/D5W 100ML 100 ML IV SCH (21:57)
[2021-08-08] MEDS ORDERED: TRAMADOL HCL 50 MG TAB PO PRN (22:45)
[2021-08-08] MEDS ORDERED: ACETAMINOPHEN 325 MG TAB PO PRN (23:00)
[2021-08-08] MEDS: LOSARTAN POTASSIUM 100 MG TAB PO SCH (23:30)
[2021-08-08] MEDS: LORATADINE 10 MG TAB PO SCH (23:30)
[2021-08-08] MEDS ORDERED: HYDRALAZINE HCL 20 MG/ML VIAL IV PRN (23:30)
[2021-08-08] MEDS: METOPROLOL TARTRATE 50 MG TAB PO SCH (23:30)
[2021-08-09] VITALS (7 sets, daily range): BP systolic 98–175; BP diastolic 59–84
[2021-08-09 02:35] LABS: CREATINE KINASE MB 1.3 ng/mL (0-5.0)
[2021-08-09 06:32] LABS: BASOPHILS % 0.3 % (0.0-1.0); EOSINOPHILS # (AUTO) 0.1 (0.0-0.4); EOSINOPHILS % 0.9 % (0.0-6.0); HEMATOCRIT 32.9 % (34.2-44.1); HEMOGLOBIN 10.3 g/dL (12.0-16.0); LYMPHOCYTES # (AUTO) 2.1 (1.0-3.2); LYMPHOCYTES % 14.8 % (18.0-39.1); MEAN CORPUSCULAR HEMOGLOBIN 29.8 pg (28-32); MEAN CORPUSCULAR HGB CONC 31.3 g/dL (31-35); MEAN CORPUSCULAR VOLUME 95.1 fL (81-99); MONOCYTES # (AUTO) 1.1 (0.2-0.8); MONOCYTES % 7.9 % (4.4-11.3); NEUTROPHILS # (AUTO) 10.5 (2.1-6.9); NEUTROPHILS % 75.5 % (38.7-80.0); PLATELET COUNT 354 x10e3/uL (140-360); RED BLOOD COUNT 3.46 x10e6/uL (3.6-5.1); RED CELL DISTRIBUTION WIDTH 15.4 % (11.7-14.4)
[2021-08-09 07:12] LABS: ALBUMIN 3.2 g/dL (3.5-5.0); ALBUMIN/GLOBULIN RATIO 0.9 (0.8-2.0); ANION GAP 13.2 mmol/L (8-16); CALCIUM 8.6 mg/dL (8.4-10.2); CREATININE, SERUM 0.82 mg/dL (0.57-1.11); POTASSIUM 4.2 mmol/L (3.5-5.1)
[2021-08-09 07:38] LABS: CREATINE KINASE MB 1.3 ng/mL (0-5.0)
[2021-08-09] MEDS: SENNOSIDES 8.6 MG TAB PO SCH (08:15)
[2021-08-09] MEDS: PANTOPRAZOLE SOD 40 MG TABEC PO SCH (08:15)
[2021-08-09] MEDS: LEVOTHYROXINE SODIUM 50 MCG TAB PO SCH (08:15)
[2021-08-09] MEDS: CYANOCOBALAMIN 1,000 MCG TAB PO SCH (08:15)
[2021-08-09] MEDS: METOPROLOL TARTRATE 50 MG TAB PO SCH ×2 (08:15→21:00)
[2021-08-09] MEDS: DOCUSATE SODIUM 100 MG CAP PO SCH (08:15)
[2021-08-09] MEDS ORDERED: CLOPIDOGREL BISULFATE 75 MG TAB PO SCH (09:00)
[2021-08-09] MEDS: CIPROFLOXACIN 200 MG/D5W 100ML 100 ML IV SCH ×2 (09:46→21:52)
[2021-08-09] MEDS: Morphine 2mg Syringe 2 MG/ML SYR IV PRN (14:35)
[2021-08-09] MEDS ORDERED: MAGNESIUM/ALUMINUM/SIMETHICONE 30 ML UDC PO PRN (15:00)
[2021-08-09 15:51] LABS: CREATINE KINASE MB 1.3 ng/mL (0-5.0)
[2021-08-09] MEDS: AMLODIPINE BESYLATE 5 MG TAB PO SCH (17:00)
[2021-08-09] MEDS: LOSARTAN POTASSIUM 100 MG TAB PO SCH (21:00)
[2021-08-09] MEDS: LORATADINE 10 MG TAB PO SCH (21:52)
[2021-08-10] VITALS (9 sets, daily range): BP systolic 116–160; BP diastolic 47–82
[2021-08-10] MEDS: Morphine 2mg Syringe 2 MG/ML SYR IV PRN (02:03)
[2021-08-10 05:37] LABS: BASOPHILS % 0.3 % (0.0-1.0); EOSINOPHILS # (AUTO) 0.1 (0.0-0.4); EOSINOPHILS % 0.6 % (0.0-6.0); HEMATOCRIT 33.6 % (34.2-44.1); HEMOGLOBIN 10.3 g/dL (12.0-16.0); LYMPHOCYTES # (AUTO) 1.9 (1.0-3.2); LYMPHOCYTES % 15.1 % (18.0-39.1); MEAN CORPUSCULAR HEMOGLOBIN 29.7 pg (28-32); MEAN CORPUSCULAR HGB CONC 30.7 g/dL (31-35); MEAN CORPUSCULAR VOLUME 96.8 fL (81-99); MONOCYTES % 8.1 % (4.4-11.3); NEUTROPHILS # (AUTO) 9.5 (2.1-6.9); NEUTROPHILS % 75.4 % (38.7-80.0); PLATELET COUNT 307 x10e3/uL (140-360); RED BLOOD COUNT 3.47 x10e6/uL (3.6-5.1); RED CELL DISTRIBUTION WIDTH 15.4 % (11.7-14.4)
[2021-08-10 05:55] LABS: ANION GAP 14.8 mmol/L (8-16); CALCIUM 8.7 mg/dL (8.4-10.2); CREATININE, SERUM 1.05 mg/dL (0.57-1.11); MAGNESIUM 2.2 MG/DL (1.3-2.1); POTASSIUM 3.8 mmol/L (3.5-5.1)
[2021-08-10] MEDS: LEVOTHYROXINE SODIUM 50 MCG TAB PO SCH (07:30)
[2021-08-10] MEDS: METOPROLOL TARTRATE 50 MG TAB PO SCH ×2 (08:39→20:19)
[2021-08-10] MEDS: PANTOPRAZOLE SOD 40 MG TABEC PO SCH (08:39)
[2021-08-10] MEDS: DOCUSATE SODIUM 100 MG CAP PO SCH (08:39)
[2021-08-10] MEDS: CYANOCOBALAMIN 1,000 MCG TAB PO SCH (08:40)
[2021-08-10] MEDS: SENNOSIDES 8.6 MG TAB PO SCH (08:40)
[2021-08-10] MEDS: CIPROFLOXACIN 200 MG/D5W 100ML 100 ML IV SCH ×2 (08:49→19:33)
[2021-08-10] MEDS: AMLODIPINE BESYLATE 5 MG TAB PO SCH (16:52)
[2021-08-10] MEDS: LORATADINE 10 MG TAB PO SCH (20:16)
[2021-08-10] MEDS: LOSARTAN POTASSIUM 100 MG TAB PO SCH (20:19)
[2021-08-11 05:03] LABS: BASOPHILS % 0.4 % (0.0-1.0); EOSINOPHILS # (AUTO) 0.2 (0.0-0.4); EOSINOPHILS % 1.6 % (0.0-6.0); HEMATOCRIT 31.2 % (34.2-44.1); HEMOGLOBIN 9.5 g/dL (12.0-16.0); LYMPHOCYTES # (AUTO) 1.4 (1.0-3.2); LYMPHOCYTES % 12.6 % (18.0-39.1); MEAN CORPUSCULAR HEMOGLOBIN 29.5 pg (28-32); MEAN CORPUSCULAR HGB CONC 30.4 g/dL (31-35); MEAN CORPUSCULAR VOLUME 96.9 fL (81-99); MONOCYTES % 9.7 % (4.4-11.3); NEUTROPHILS # (AUTO) 8.1 (2.1-6.9); NEUTROPHILS % 75.3 % (38.7-80.0); PLATELET COUNT 292 x10e3/uL (140-360); RED BLOOD COUNT 3.22 x10e6/uL (3.6-5.1); RED CELL DISTRIBUTION WIDTH 15.3 % (11.7-14.4)
[2021-08-11 05:29] LABS: ALBUMIN 2.8 g/dL (3.5-5.0); ALBUMIN/GLOBULIN RATIO 0.8 (0.8-2.0); ANION GAP 15.1 mmol/L (8-16); CALCIUM 8.2 mg/dL (8.4-10.2); CREATININE, SERUM 1.51 mg/dL (0.57-1.11); POTASSIUM 4.1 mmol/L (3.5-5.1)
[2021-08-11 06:58] VITALS: BP 119/56
[2021-08-11 07:52] VITALS: BP 124/81
[2021-08-11 08:08] VITALS: BP 124/81
[2021-08-11] MEDS: METOPROLOL TARTRATE 50 MG TAB PO SCH (08:47)
[2021-08-11] MEDS: SENNOSIDES 8.6 MG TAB PO SCH (08:47)
[2021-08-11] MEDS: LEVOTHYROXINE SODIUM 50 MCG TAB PO SCH (08:47)
[2021-08-11] MEDS: PANTOPRAZOLE SOD 40 MG TABEC PO SCH (08:47)
[2021-08-11] MEDS: DOCUSATE SODIUM 100 MG CAP PO SCH (08:47)
[2021-08-11] MEDS: CIPROFLOXACIN 200 MG/D5W 100ML 100 ML IV SCH (08:47)
[2021-08-11] MEDS: CYANOCOBALAMIN 1,000 MCG TAB PO SCH (08:49)
[2021-08-11] MEDS ORDERED: SODIUM CHLORIDE 0.9% 1000ML 1,000 ML IV SCH (09:15)
[2021-08-11] MEDS ORDERED: Morphine 2mg Syringe 2 MG/ML SYR IV PRN (11:30)
[2021-08-11] MEDS ORDERED: ONDANSETRON HCL 4 MG ORAL DISINTEGRATING TAB PO PRN (11:30)
[2021-08-11 11:38] VITALS: BP 168/72
== END 2021-08-11 16:00 | DRG 534 ==
LOC: ER 10:35 → ERHOLD 16:44 → MED/SURG 18:08
PROVIDERS: ADMIT Internal Medicine; ATTEND Internal Medicine
DX: S72.491A Other fracture of lower end of right femur, initial encounter for closed fracture (principal); N39.0 Urinary tract infection, site not specified; I50.32 Chronic diastolic (congestive) heart failure; M97.01XA Periprosthetic fracture around internal prosthetic right hip joint, initial encounter; I13.0 Hypertensive heart and chronic kidney disease with heart failure and stage 1 through stage 4 chronic kidney disease, or unspecified chronic kidney disease; W19.XXXA Unspecified fall, initial encounter; Z91.81 History of falling; I25.10 Atherosclerotic heart disease of native coronary artery without angina pectoris; B96.1 Klebsiella pneumoniae [K. pneumoniae] as the cause of diseases classified elsewhere; G30.9 Alzheimer's disease, unspecified; F02.80 Dementia in other diseases classified elsewhere, unspecified severity, without behavioral disturbance, psychotic disturbance, mood disturbance, and anxiety; N18.30 Chronic kidney disease, stage 3 unspecified
CPT/HCPCS: 36415; 70450; 71045; 72125; 80048; 80053; 80320; 80329; 81001; 82550; 82553; 83735; 84443; 84484; 85025; 85610; 85730; 87086; 87186; 93005; 94799; 96360; 97139; 99284; J0360; J2270; J2405; J7030; J7040; U0002